=== PATIENT | male | born 1970 | race Caucasian/White ===

== ENCOUNTER → 2019-12-26 14:23 | Outpatient (BNVA) | payer OTHER, SELFPAY | PROVIDERS: Family Provider Family Medicine; PCP Family Medicine; Visit Provider Internal Medicine Rheumatology | DX: M05.79 Rheumatoid arthritis with rheumatoid factor of multiple sites without organ or systems involvement (principal); Z79.899 Other long term (current) drug therapy; Z11.59 Encounter for screening for other viral diseases; M19.90 Unspecified osteoarthritis, unspecified site; Z79.52 Long term (current) use of systemic steroids | CPT/HCPCS: 99214 ==

== ENCOUNTER 2019-12-27 09:47 | Outpatient (CLI) | payer OTHER, SELFPAY ==
--- NOTE | 2019-12-27 10:05 | XR_ITS ---
WS: [id number] RIGHT FOOT: 3 VIEW(S) TECHNIQUE: PA, oblique and lateral. HISTORY: arthritis COMPARISON: None available. No acute fracture or dislocation. Normal tarsal/metatarsal alignment. Mild narrowing of the first metatarsophalangeal joint. Very small calcaneal spur. Mild spurring along the volar surface of the talus. No soft tissue abnormality or bone destruction. XR/XR foot RT min 3V* [id number] IMPRESSION: Mild changes of osteoarthritis.
--- NOTE | 2019-12-27 10:05 | XR_ITS ---
WS: [id number] LEFT WRIST: 3 VIEW(S) TECHNIQUE: PA, oblique and lateral. HISTORY: arthritis COMPARISON: None available. No acute fracture or dislocation. No joint space abnormality. No soft tissue swelling. XR/XR wrist LT min 3V* [id number] IMPRESSION: Negative LEFT wrist.
--- NOTE | 2019-12-27 10:05 | XR_ITS ---
WS: [id number] LEFT ELBOW: 2 VIEW(S) TECHNIQUE: AP and lateral. HISTORY: arthritis COMPARISON: None available. No acute fractures or dislocation. No joint effusion. No soft tissue abnormality. XR/XR elbow LT 2V [id number] IMPRESSION: Normal LEFT elbow.
--- NOTE | 2019-12-27 10:05 | XR_ITS ---
WS: [id number] LEFT FOOT: 3 VIEW(S) TECHNIQUE: PA, oblique and lateral. HISTORY: rheumatoid arthritis with rheumatoid factor COMPARISON: None available. No acute fracture or dislocation. Mild narrowing of the first metatarsophalangeal joint. No erosions. Deformity of the proximal phalanx fifth toe is probably from an old healed fracture. No soft tissue abnormality or bone destruction. XR/XR foot LT min 3V* [id number] IMPRESSION: 1. Mild osteoarthritis at the first metatarsophalangeal joint. 2. No erosions.
--- NOTE | 2019-12-27 10:05 | XR_ITS ---
WS: [id number] RIGHT ELBOW: 2 VIEW(S) TECHNIQUE: AP and lateral. HISTORY: arthritis COMPARISON: None available. No acute fractures or dislocation. No joint effusion. Mild spurring at the radial head and a calcification along the medial joint space. XR/XR elbow RT 2V [id number] IMPRESSION: Mild osteoarthritis.
--- NOTE | 2019-12-27 10:05 | XR_ITS ---
WS: [id number] CHEST 2 VIEWS HISTORY: arthritis COMPARISON: 02/02/2018 Lungs: Hyperinflated lungs. Benign granuloma RIGHT lower lobe is stable. No pulmonary mass or nodule. No pleural effusion or pneumothorax. Cardiac size: Normal. Mediastinum/Aorta: Normal mediastinum. Bones: Thoracic spondylosis. Probably an old healed mid LEFT clavicle fracture. XR/XR chest 2V* [id number] IMPRESSION: 1. Mild chronic emphysema and stable benign RIGHT lower lobe granuloma. 2. No pneumonia.
--- NOTE | 2019-12-27 10:05 | XR_ITS ---
WS: [id number] RIGHT WRIST: 3 VIEW(S) TECHNIQUE: PA, oblique and lateral. HISTORY: arthritis COMPARISON: None available. No acute fracture or dislocation. No joint space abnormality. No soft tissue swelling. XR/XR wrist RT min 3V* [id number] IMPRESSION: Negative RIGHT wrist.
== END 2019-12-27 09:48 | disposition home or self-care (01) ==
PROVIDERS: Family Provider Family Medicine; PCP Family Medicine; Visit Provider Internal Medicine Rheumatology
DX: M19.072 Primary osteoarthritis, left ankle and foot (principal); M19.071 Primary osteoarthritis, right ankle and foot; M19.021 Primary osteoarthritis, right elbow; J43.9 Emphysema, unspecified
CPT/HCPCS: 71046; 73070; 73110; 73630

== ENCOUNTER → 2020-06-01 09:46 | Outpatient (BNVA) | payer OTHER, SELFPAY | PROVIDERS: Family Provider Family Medicine; PCP Family Medicine; Visit Provider Family Medicine | DX: Z13.6 Encounter for screening for cardiovascular disorders (principal); F51.01 Primary insomnia; Z12.11 Encounter for screening for malignant neoplasm of colon | CPT/HCPCS: 80061; 84153 ==

== ENCOUNTER 2020-06-19 07:23 | Day surgery (SDC) | payer OTHER, SELFPAY ==
[2020-06-15 13:54] VITALS: BMI 32.8
[2020-06-19 07:45] VITALS: BP 120/75; PULSE 102; RESP 18; TEMP 36.8; O2SAT 94
[2020-06-19] MEDS: sodium chloride 0.9% 1,000 ML 30 ML IV (07:56)
--- NOTE | 2020-06-19 08:53 | ANES.PREANE2 ---
Pre-Anesthetic Assessment Pre-Anesthetic Assessment: Height/Weight: Height 1.93 m Weight 122.47 kg Temp Pulse Resp BP Pulse Ox 98.2 F 102 H 18 120/75 94 06/19/20 07:45 06/19/20 07:45 06/19/20 07:45 06/19/20 07:45 06/19/20 07:45 Preop Diagnosis: screening Proposed Procedure: Operation Date: 06/19/20 09:00 Proposed Procedures p Colonoscopy with possible biopsy poss polypectomy(Not Applicable) - Noe Sales MD Was Beta Mary Ann taken within 24 hours: N/A Last intake: Intake Last Liquid Date 06/19/20 Last Liquid Time 00:00 Last Solid Date 06/18/20 Last Solid Time 08:00 Social: Social History: No alcohol and No tobacco (quit many yrs ago) Exam: Pre-Anes Outpt Exam: alert, oriented x 3, clear to auscultation bilaterally and regular rate & rhythm Airway: Submandibular: WNL Cervical ROM: WNL MP: 2 Dentition: Full History/ROS: No significant history except as noted Pulmonary: Pulmonary: Asthma (only as a child) CV/HEM: CV/HEM: None reported : : None reported Hepatic: Hepatic: None reported GI: GI: None reported Metabolic: Metabolic: None reported Musc/skel: Musc/skel: RA (last oral steroid this morning) Neuropsych: Neuropsych: None reported Anesthetic Plan: ASA status: 2 Anesthesia: Anesthesia Evaluation and MAC Risk of > 500 ml blood loss (7ml/kg in children): No Meds/Allergies Current Medications: Current Medications Generic Name Dose Route Start Last Admin Trade Name Freq PRN Reason Stop Dose Admin Sodium Chloride 1,000 mls @ 30 ml s/hr 06/19/20 07:45 06/19/20 07:56 Sodium Chloride 0.9% IV 30 mls/hr .Q24H JESSICA Administration PFSH Anesthesia PFSH: Medical History Rheumatoid arthritis with rheumatoid factor Surgical History History of appendectomy History of elbow surgery Family History Other Diabetes Denies family history of Rheumatoid arthritis Lupus CAD (coronary artery disease) Cancer Social History Smoking and tobacco status: former smoker Alcohol intake: former History of recent travel: No Data Anesthesia Cardiac Studies: No Data to Display
--- NOTE | 2020-06-19 08:55 | W.PM.OPSUD ---
Surgery/Procedure H&P Update DATE OF PROCEDURE: June 19, 2020 DATE H&P PERFORMED: 06/08/20 H&P UPDATE INFORMATION: I have reviewed H&P completed within last 30 days, I have examined patient prior to procedure and No changes to prior documentation PREOP DIAGNOSIS: screening PLANNED PROCEDURE: Operation Date: 06/19/20 09:00 Proposed Procedures p Colonoscopy with possible biopsy poss polypectomy(Not Applicable) - Noe Sales MD
[2020-06-19 09:24] VITALS: BP 108/79; PULSE 74; RESP 16; TEMP 36.2; O2SAT 93
[2020-06-19 09:33] VITALS: BP 119/82; PULSE 83; RESP 16; O2SAT 97
== END 2020-06-19 09:48 | disposition home or self-care (01) ==
PROVIDERS: PCP Family Medicine; Visit Provider Surgery
PROC: 0DJD8ZZ Inspection of Lower Intestinal Tract, Via Natural or Artificial Opening Endoscopic (ICD-10-PCS; CPT 45378; principal; 2020-06-19 09:00)
DX: Z12.11 Encounter for screening for malignant neoplasm of colon (principal); D12.3 Benign neoplasm of transverse colon; K57.30 Diverticulosis of large intestine without perforation or abscess without bleeding; K64.8 Other hemorrhoids; J45.909 Unspecified asthma, uncomplicated; M06.9 Rheumatoid arthritis, unspecified; Z87.891 Personal history of nicotine dependence; Z79.52 Long term (current) use of systemic steroids; G47.00 Insomnia, unspecified
CPT/HCPCS: 12345; 45385; 88305; J2704; J7030

== ENCOUNTER → 2020-07-05 12:54 | Outpatient (BNVA) | payer OTHER, SELFPAY | PROVIDERS: PCP Family Medicine; Visit Provider Internal Medicine Rheumatology | DX: M05.741 Rheumatoid arthritis with rheumatoid factor of right hand without organ or systems involvement (principal); M05.742 Rheumatoid arthritis with rheumatoid factor of left hand without organ or systems involvement; Z79.899 Other long term (current) drug therapy; Z79.52 Long term (current) use of systemic steroids | CPT/HCPCS: 99214 ==

== ENCOUNTER → 2020-10-23 09:27 | Outpatient (BNVA) | payer OTHER, SELFPAY | PROVIDERS: PCP Family Medicine; Visit Provider Internal Medicine Rheumatology | DX: M05.79 Rheumatoid arthritis with rheumatoid factor of multiple sites without organ or systems involvement (principal); Z79.899 Other long term (current) drug therapy; Z79.52 Long term (current) use of systemic steroids; R06.02 Shortness of breath; Z87.891 Personal history of nicotine dependence | CPT/HCPCS: 99214 ==

== ENCOUNTER → 2020-11-07 08:49 | Outpatient (BNVA) | payer OTHER, SELFPAY | PROVIDERS: PCP Family Medicine; Visit Provider Family Medicine | DX: R06.00 Dyspnea, unspecified (principal); J90 Pleural effusion, not elsewhere classified | CPT/HCPCS: 71046 ==

== ENCOUNTER 2020-12-24 10:22 | Outpatient (CLI) | payer OTHER, SELFPAY ==
[2020-12-24 10:34] VITALS: BMI 34.8
--- NOTE | 2020-12-24 10:35 | ECG_ITS ---
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 Interpretive Statements NAME OF STUDY: TREADMILL STRESS ECHOCARDIOGRAM INDICATION: Dyspnea PROCEDURE: At the baseline, the patient's blood pressure was 124/85 with a heart rate of 111. The baseline electrocardiogram showed sinus tachycardia with some nonspecific ST-T changes. Heart rate was 111 bpm. The patient exercised for 5 minutes and 24 seconds on a standard Mahendra protocol. Patient attained a maximum heart rate of 158 beats per minute(94% of the maximum predicted heart rate) with a blood pressure at the peak exercise of 201/47 mm Hg. The EKG at the peak exercise revealed no significant changes. Patient did not have any chest pain or any significant cardiac arrhythmias with the exercise During the recovery phase, there were no new changes. Blood pressure at the end of the recovery phase was 153/78 mm Hg with a heart rate of 110 per minute. Echocardiographic pictures were taken at the baseline, immediately following the peak exercise and during the recovery phase. CONCLUSION: 1. No significant EKG changes with the treadmill exercise 2. No exercise-induced chest pain or cardiac arrhythmia 3. Slightly impaired exercise tolerance, attained a maximum of 7.0 METs 4. Please see separate report for the echocardiographic response to exercise. Electronically Signed On 12-27-2020 9:57:50 [employer]SMITH by Carlos Barron M.D. [id number]
--- NOTE | 2020-12-24 10:37 | USCV_ITS ---
Deonte Adamson Age: 50 Gender: M : 1970 Exam Date: 12/24/2020 10:47 Ordering Phys: Winter Cox DO Technologist: Amada Martinez Exam Location: [facility] [place]ication: dyspnea Rhythm: Sinus Patient History: Dyspnea/SOB Cardiac Medications: Medications in past 24 hours: Contrast: Stress Results Protocol: Mahendra Total dose(mL): Exercise Duration (min:sec): 5:24 METS: 7 Resting HR: 111 Resting BP: 124 / 85 Peak HR: 158 Peak BP: 201 / 91 Max Predicted HR: 168 94 % Max Predicted HR Target HR: 143 Double Product: [id number] Stress Summary: The patient's target heart rate was achieved BP Response: Normal Reason for Termination: Maximal effort/unable to continue Cardiac Symptoms: Dyspnea ECG Analysis Resting ECG: Stress ECG: Arrhythmia: MEASUREMENTS (Male/Female) Normal Values FINDINGS Technically difficult study because of poor ultrasonic window. The baseline echocardiogram revealed normal LV size and ejection fraction. Segmental wall motion analysis revealed mild hypokinesia of the apical anteroseptal segment. Mitral valve morphology appears within normal limits. No pericardial effusion. With the peak exercise, there was some worsening of the apical anteroseptal hypokinesia. All the other segments appear augmenting well. During the recovery phase, the segmental wall motion returned back to the baseline CONCLUSIONS Borderline abnormal exercise stress echo may suggest some ischemia in the distribution of the distal left anterior descending artery . Because of the technical difficulty of the study, the reliability of this finding is compromised Dr Carlos Barron MD [facility] Edited by: CV Steel Turner (Electronically Signed) Final Date: 24 December 2020 19:44 Amended: 25 December 2020 06:36 C
[2020-12-24 11:13] VITALS: BP 153/78; PULSE 108
== END 2020-12-24 10:23 | disposition home or self-care (01) ==
LOC: CDL 10:23
PROVIDERS: PCP Family Medicine; Visit Provider Family Medicine
DX: R06.00 Dyspnea, unspecified (principal)
CPT/HCPCS: 93017; 93350

== ENCOUNTER 2021-01-24 06:54 | Outpatient (CLI) | payer OTHER, SELFPAY ==
--- NOTE | 2021-01-24 07:15 | USCV_ITS ---
Deonte Adamson Age: 50 Gender: M : 1970 Exam Date: 01/24/2021 07:25 Ordering Phys: Shabnam Reagan MD ([email or web address]) Technologist: Grant Greenfield [place]am [place] [facility] [place] [facility] [place] Indication: CHEST PAIN BP: / HR: 90 Rhythm: Sinus Technical Quality: Fair MEASUREMENTS (Male / Female) Normal Values 2D ECHO LV Diastolic Diameter PLAX 4.5 cm 4.2 - 5.9 / 3.9 - 5.3 cm LV Systolic Diameter PLAX 2.4 cm IVS Diastolic Thickness 1.5 cm 0.6 - 1.0 / 0.6 - 0.9 cm IVS Systolic Thickness 1.4 cm LVPW Diastolic Thickness 1.2 cm 0.6 - 1.0 / 0.6 - 0.9 cm LVPW Systolic Thickness 1.3 cm LVOT Diameter 2.2 cm LV Ejection Fraction 2D Teich 75.4 % LV Ejection Fraction MOD 2C 59.6 % LV Ejection Fraction 2C AL 61.5 % LA Diameter 3.1 cm LA Width 3.2 cm LA Height 4.1 cm RA Width 3.7 cm RA Height 4.1 cm Aorta at Sinotubular Diameter 4.1 cm M-MODE LV Diastolic Diameter MM 5.4 cm 4.2 - 5.9 / 3.9 - 5.3 cm LV Systolic Diameter MM 3.7 cm LV Ejection Fraction MM Teich 58.2 % IVS Diastolic Thickness MM 1.3 cm 0.6 - 1.0 / 0.6 - 0.9 cm IVS Systolic Thickness MM 2.1 cm LVPW Diastolic Thickness MM 1.3 cm 0.6 - 1.0 / 0.6 - 0.9 cm LVPW Systolic Thickness MM 2.0 cm RV Diastolic Diameter MM 1.3 cm Aortic Annulus Diameter 4.1 cm LA Ao Ratio MM 0.7 MV E Point Septal Separation 1.1 cm DOPPLER AV Peak Velocity 106.0 cm/s LVOT Peak Velocity 82.0 cm/s AV Area Cont Eq vti 3.1 cm squared AV Area Cont Eq pk 3.0 cm squared MV Area PHT 5.0 cm squared Mitral E to A Ratio 0.8 MV E' Velocity 35.0 cm/s Mitral E to MV E' Ratio 5.3 Mitral E to LV E' Lateral Ratio 5.8 Mitral E to LV E' Septal Ratio 5.0 TR Peak Velocity 230.0 cm/s TR Peak Gradient 21.2 mmHg PV Peak Velocity 108.0 cm/s FINDINGS Left Ventricle Normal left ventricular cavity size. Normal left ventricular systolic function. Left ventricular ejection fraction is estimated at 70 %. No regional wall motion abnormalities. Normal diastolic function. Right Ventricle Normal right ventricular size and systolic function. Right Atrium Normal right atrial size. Left Atrium Normal left atrial size. Mitral Valve Structurally normal mitral valve. No mitral valve stenosis. Trace mitral valve regurgitation. Aortic Valve Aortic valve not well visualized. No aortic valve stenosis. No aortic valve regurgitation. Tricuspid Valve Tricuspid valve not well visualized. Trace tricuspid valve regurgitation. Pulmonic Valve Pulmonic valve not well visualized. Pericardium No pericardial effusion. Aorta Normal sized aortic root. CONCLUSIONS 1. This is a technically difficult study. Optison was used per protocol. 2. Normal left ventricular cavity size and systolic function. Left ventricular ejection fraction is estimated at 70 %. No regional wall motion abnormalities. Normal diastolic function. 3. No significant valvular abnormality. 4. No pericardial effusion. Shabnam Reagan MD (Electronically Signed) Final Date: 29 January 2021 22:11 S
[2021-01-24] MEDS: perflutren protein-a microsphr 0.22 mg/mL SDV 3 mL IV (07:50)
== END 2021-01-24 06:55 | disposition home or self-care (01) ==
LOC: US 06:56
PROVIDERS: PCP Family Medicine; Visit Provider Internal Medicine Cardiovascular Disease
DX: I50.9 Heart failure, unspecified (principal); R07.9 Chest pain, unspecified
CPT/HCPCS: C8929; Q9956

== ENCOUNTER → 2021-03-07 08:44 | Outpatient (BNVA) | payer OTHER, SELFPAY | PROVIDERS: PCP Family Medicine; Visit Provider Internal Medicine Rheumatology | DX: M06.041 Rheumatoid arthritis without rheumatoid factor, right hand (principal); M06.042 Rheumatoid arthritis without rheumatoid factor, left hand; Z79.899 Other long term (current) drug therapy; R79.89 Other specified abnormal findings of blood chemistry; Z87.891 Personal history of nicotine dependence | CPT/HCPCS: 99214 ==

== ENCOUNTER → 2021-06-27 08:44 | Outpatient (BNVA) | payer OTHER, SELFPAY | PROVIDERS: PCP Family Medicine; Visit Provider Internal Medicine Rheumatology | DX: M06.041 Rheumatoid arthritis without rheumatoid factor, right hand (principal); M06.042 Rheumatoid arthritis without rheumatoid factor, left hand; Z79.899 Other long term (current) drug therapy; Z79.52 Long term (current) use of systemic steroids; R06.02 Shortness of breath; Z71.89 Other specified counseling; Z87.891 Personal history of nicotine dependence | CPT/HCPCS: 99214 ==

== ENCOUNTER 2022-06-04 09:00 | Outpatient (CLI) | payer OTHER, SELFPAY ==
--- NOTE | 2022-06-04 13:42 | PFTS_ITS ---
Date of Study:06/04/22 Date of Dictation: MECHANICS: Forced vital capacity (FVC) is reduced. Forced expiratory volume in one second (FEV1) is reduced. FEV1/FVC is reduced. FLOW VOLUME LOOP: Reduced flow at all lung volumes with significant scooping. LUNG VOLUMES: Not measured DIFFUSING CAPACITY FOR CARBON MONOXIDE: Not measured. INTERPRETATION: The postbronchodilator spirometry is consistent with severe airflow obstruction. There is a significant postbronchodilator response. A component of restrictive lung disease cannot be ruled out in the absence of lung volume measurement. Gas exchange (DLCO) is not measured. MTDD
== END 2022-06-04 09:01 | disposition home or self-care (01) ==
PROVIDERS: PCP Family Medicine; Visit Provider Family Medicine
DX: R06.02 Shortness of breath (principal)
CPT/HCPCS: 94060; J7614

== ENCOUNTER 2022-06-27 08:40 | Outpatient (CLI) | payer OTHER, SELFPAY ==
--- NOTE | 2022-06-27 09:00 | CT_ITS ---
WS: [id number] CT CHEST WITHOUT INTRAVENOUS CONTRAST HISTORY: M06.041 - Rheumatoid arthritis without rheumatoid factor,... TECHNIQUE: Contiguous 5 mm axial imaging performed on the thorax. Coronal and sagittal reformats are submitted. All CT scans at [facility] use at least one of these dose optimization techniques: automated exposure control; mA and/or kV adjustment per patient size (includes targeted exams where dose is matched to clinical indication); or iterative reconstruction. CONTRAST: None DLP: 3100.94 mGy.cm COMPARISON: None available. Large bilateral pleural effusions are causing significant compression upon the lungs. There is signif icant mass effect limiting pulmonary expansion. Most significant mass effect and compression on the l ower lobes bilaterally. Mild groundglass attenuation within the aerated upper lobes. 8mm nodule LEFT upper lobe. Mediastinum and everton: Inferior RIGHT paratracheal lymph node measures 11 mm. There are smaller additi onal lymph nodes. No significant adenopathy. Vessels: Minimal atherosclerosis aorta. Normal size pulmonary artery. Chest wall and lower neck: No soft tissue masses. Upper abdomen: Negative. Osseous structures: No destructive process. CT/CT chest wo con [id number] IMPRESSION: 1. Very large bilateral pleural effusion causing lung compression. 2. 8mm LEFT upper lobe nodule. Could be a pulmonary nodule associated with rh eumatoid arthritis. Follow-up chest CT in 6 months.
== END 2022-06-27 08:41 | disposition home or self-care (01) ==
LOC: RAD 08:41
PROVIDERS: PCP Family Medicine; Visit Provider Internal Medicine Rheumatology
DX: M06.041 Rheumatoid arthritis without rheumatoid factor, right hand (principal); M06.042 Rheumatoid arthritis without rheumatoid factor, left hand; R06.02 Shortness of breath; J90 Pleural effusion, not elsewhere classified; R91.1 Solitary pulmonary nodule
CPT/HCPCS: 71250

== ENCOUNTER 2022-07-01 06:50 | Emergency (ER) | payer OTHER, SELFPAY ==
[2022-07-01 06:54] VITALS: BP 151/85; PULSE 121; RESP 22; TEMP 36.6; O2SAT 92; BMI 29.8
--- NOTE | 2022-07-01 07:02 | XRR_ITS ---
PROCEDURE INFORMATION: Exam: XR Chest Exam date and time: 07/01/2022 7:25 AM Age: 51 years old Clinical indication: Cough and dyspnea; Additional info: Dyspnea/cough TECHNIQUE: Imaging protocol: Radiologic exam of the chest. Views: 1 view. COMPARISON: CT chest con [id number] 06/27/2022 9:18 AM FINDINGS: Lungs: Persistent increased lung markings and large bilateral pleural effusions with adjacent atelectasis, right greater than left. Pneumonia should be excluded clinically. No pneumothorax. Pleural spaces: See Lungs finding. Heart/Mediastinum: Stable cardiomediastinal silhouette. Bones/joints: Degenerative changes of the spine seen. XR/XR chest 1V portable [id number] IMPRESSION: Persistent mildly increased lung markings and large bilateral pleural effusions with adjacent atelectasis.
[2022-07-01 07:25] LABS: Basophils # 0.1 10^3/uL (0.0-0.1); Basophils % 0.8 %; Eosinophils # 0.4 10^3/uL (0.0-0.8); Eosinophils % 5.5 %; Hematocrit 43.1 % (42.0-52.0); Hemoglobin 13.7 g/dL (11.7-16.6); Lymphocytes # 1.6 10^3/uL (0.8-4.8); Lymphocytes % 19.8 %; Mean Corpuscular HGB Conc 31.8 g/dL (30.0-36.0); Mean Corpuscular Hemoglobin 29.9 pg (28.0-34.0); Mean Corpuscular Volume 94.1 fl (80-94); Monocytes # 0.7 10^3/uL (0.2-0.9); Monocytes % 8.5 %; Neutrophils # 5.21 10^3/uL (1.8-7.7); Nucleated Red Blood Cells % 0 %; Platelet Count 377 10^3/cmm (130-400); Red Blood Count 4.58 10^6/uL (4.1-5.3); Red Cell Distribution Width 14.8 % (12.1-15.1)
--- NOTE | 2022-07-01 07:27 | ED_ITS ---
HPI - SOB/Dyspnea General: Chief Complaint: Shortness of Breath/Dyspnea Stated Complaint: sob Time Seen by Provider: 07/01/22 07:01 Source: patient Mode of arrival: ambulatory Limitations: no limitations History of Present Illness: HPI Narrative: 51-year-old male presents emergency room complaining of shortness of breath. This been ongoing issue for couple of years for him. Over the last few weeks or months its been getting progressively worse. He has history of rheumatoid arthritis and he sees Dr. Chand. He had a CT done on 812 the results were made available to Dr. Chand evidently yesterday and he was called to come to the emergency room because of the large pleural effusion. He does report that he has been exercising regularly on a treadmill with only moderate shortness of breath he will walk about a half a mile. Other times when he does more anaerobic activity he notices worsening dyspnea. He denies any chest pain. MD elicited complaint: shortness of breath Onset (ago): year(s) (2) Timing: constant Severity: mild Exacerbating factors: lying flat and exertion Relieving factors: rest and upright position Associated symptoms: Deny abdominal pain, chest congestion, chest pain, cough, diaphoresis, dizziness, extremity pain, fever(s), hemoptysis, lightheadedness, myalgias, nausea, orthopnea, palpitations, paresthesias, polydipsia, polyuria, rash, sense of impending doom, syncope or vomiting Treatment prior to arrival: none Review of Systems Const: Reports: fatigue; Denies: fever(s), chills, malaise or diaphoresis ENMT: Denies: throat pain, ear or mastoid pain, nasal discharge or nasal congestion Card: Denies: chest pain, palpitations, lightheadedness, syncope or orthopnea Resp: Reports: dyspnea; Denies: productive cough, non-productive cough, hemoptysis or chest congestion GI: Denies: abdominal pain, nausea or vomiting : Denies: flank pain, dysuria, urinary frequency or urinary urgency Musc: Denies: extremity pain Skin/Breast: Denies: rash or pruritus Neuro: Denies: dizziness Endo: Denies: polyuria or polydipsia PFS ED PFSH: Medical History Current chronic use of systemic steroids History of colon polyps Rheumatoid arthritis with rheumatoid factor Seronegative rheumatoid arthritis of both hands Shortness of breath Surgical History History of appendectomy History of elbow surgery Status post colonoscopy with polypectomy (06/19/20) Family History Other Diabetes Denies family history of Rheumatoid arthritis Lupus CAD (coronary artery disease) Cancer Social History Smoking and tobacco status: never smoked Quit status (tobacco): has quit using tobacco Year quit tobacco: 2020 - 1PPD x 20 Years Second hand smoke exposure: No Smoking risk assessment/counseling performed?: No Alcohol intake: former Desire information about alcohol rehabilitation?: No Counseling given: No Desire information about substance/drug rehabilitation?: No Counseling given: No Lives independently: Yes Household members: none Marital status: Single Current occupational status: employed Current occupation: [employer] Current occupational exposures/hazards: No History of recent travel: No Current gender identity: Male Course Vital Signs: Vital signs: Vital Signs Temperature 97.9 F 07/01/22 06:54 Pulse Rate 102 H 07/01/22 08:27 Respiratory Rate 20 H 07/01/22 08:27 Blood Pressure 112/83 07/01/22 08:27 Pulse Oximetry 93 07/01/22 08:28 Oxygen Delivery Me thod 07/01/22 08:27 MDM - SOB/Dyspnea Medical Decision Making Previous CT and today's chest x-ray as well as labs and EKGs all reviewed. Kimberly ent is at this point of fusion for extended period of time dating back at least [address]. Ramirez reviewed the CT in the chart with him at this point its not emergent. Ultimately found out the patient has an appointment today with Dr. Tariq. We will go ahead and discharge him from the ER and have him follow-up with Dr. Tariq as scheduled. We did ambulate him and do home oxygen evaluation did not desaturate significantly with ambulation. Discussed with the patient that since this is chronic and may be loculated and difficult to drain and is very likely to recur and could be better for Dr. Tariq to manage this as opposed to having radiology do an ultrasound-guided thora centesis here in the emergency room. He agrees and we will discharge him we did confirm with Dr. Jones's office he has an appoint with him at 1245 today. Medical Records I reviewed the patient's medical records. Lab Data I reviewed the patient's lab results. : 07/01/22 07:20 07/01/22 07:20 Labs/Radiology: Radiology Impressions Chest X-Ray 07/01/22 07:02 IMPRESSION: Persistent mildly increased lung markings and large bilateral pleural effusions with adjacent atelectasis. Laboratory Results WBC 8.0 10^3/uL (4.0-10.0) 07/01/22 07:20 RBC 4.58 10^6/uL (4.1-5.3) 07/01/22 07:20 Hgb 13.7 g/dL (11.7-16.6) 07/01/22 07:20 Hct 43.1 % (42.0-52.0) 07/01/22 07:20 MCV 94.1 fl (80-94) H 07/01/22 07:20 MCH 29.9 pg (28.0-34.0) 07/01/22 07:20 MCHC 31.8 g/dL (30.0-36.0) 07/01/22 07:20 RDW 14.8 % (12.1-15.1) 07/01/22 07:20 Plt Count 377 10^3/cmm (130-400) 07/01/22 07:20 MPV 10.0 fL (7.4-10.4) 07/01/22 07:20 Neut % (Auto) 65.0 % 07/01/22 07:20 Lymph % (Auto) 19.8 % 07/01/22 07:20 [place] % (Auto) 8.5 % 07/01/22 07:20 Eos % (Auto) 5.5 % 07/01/22 07:20 Baso % (Auto) 0.8 % 07/01/22 07:20 Neut # (Auto) 5.21 10^3/uL (1.8-7.7) 07/01/22 07:20 Lymph # (Auto) 1.6 10^3/uL (0.8-4.8) 07/01/22 07:20 [place] # (Auto) 0.7 10^3/uL (0.2-0.9) 07/01/22 07:20 Eos # (Auto) 0.4 10^3/uL (0.0-0.8) 07/01/22 07:20 Baso # (Auto) 0.1 10^3/uL (0.0-0.1) 07/01/22 07:20 Nucleated RBC % (auto) 0 % 07/01/22 07:20 Nucleated RBCs # 0.0 /100WBC 07/01/22 07:20 PT 14.50 SECONDS (12.1-14.9) 07/01/22 07:20 INR 1.10 (0.8-1.2) 07/01/22 07:20 APTT 37.1 SECONDS (23.9-36.7) H 07/01/22 07:20 Sodium 137 mmol/L (136-145) 07/01/22 07:20 Potassium 3.6 mmol/L (3.5-5.1) 07/01/22 07:20 Chloride 97 mmol/L (98-107) L 07/01/22 07:20 Carbon Dioxide 29 mmol/L (22-29) 07/01/22 07:20 Anion Gap 14.6 (5-19) 07/01/22 07:20 BUN 20 mg/dL (6-20) 07/01/22 07:20 Creatinine 1.2 mg/dL (0.7-1.2) 07/01/22 07:20 GFR Calculation 63.3 mL/min (90-130) L 07/01/22 07:20 Glucose 132 mg/dL (65-115) H 07/01/22 07:20 Calculated Osmolality 288 mOsm/kg (285-295) 07/01/22 07:20 Calcium 9.1 mg/dL (8.5-10.5) 07/01/22 07:20 Total Bilirubin 0.4 mg/dL (0.15-1.2) 07/01/22 07:20 AST 13 U/L (0-40) 07/01/22 07:20 ALT 13 U/L (0-41) 07/01/22 07:20 Alkaline Phosphatase 128 U/L (40-130) 07/01/22 07:20 Total Protein 8.1 g/dL (6.6-8.7) 07/01/22 07:20 Albumin 3.8 g/dL (3.5-5.2) 07/01/22 07:20 Globulin 4.3 g/dL (1.3-4.6) 07/01/22 07:20 Discharge Plan Discharge Patient Disposition: Home Clinical Impression: Pleural effusion, Rheumatoid arthritis with rheumatoid factor, High risk med ication use Condition: Stable Prescriptions: No Action prednisone 5 mg tablet 5 mg PO DAILY PRN (Reason: Pain) potassium chloride 20 mEq tablet extended release 20 meq PO DAILY Qty: 90 1RF hydroxychloroquine 200 mg tablet 200 mg PO BID Qty: 60 3RF Hold Instructions: Doctor's Order albuterol sulfate [ProAir HFA] 90 mcg/actuation HFA aerosol inhaler 2 puff inhalation QID PRN (Reason: shortness of breath or wheezing) Qty: 8.5 0RF folic acid 1 mg tablet 1 mg PO DAILY Qty: 90 3RF methotrexate sodium 2.5 mg tablet 20 mg PO .Q7days Qty: 40 3RF Rx Instructions: Split dose Take 4 tabs by mouth in AM and 4 in PM on same day 1x a week pantoprazole 40 mg tablet,delayed release (DR/EC) See Rx Instructions .ROUTE .COMPLEX Qty: 30 3RF Dose Instruction: TAKE 1 TABLET BY MOUTH EVERY DAY Rx Instructions: TAKE 1 TABLET BY MOUTH EVERY DAY furosemide 40 mg tablet 40 mg PO DAILY Qty: 30 0RF Rx Instructions: MUST make follow-up for further refills Humira Pen 40 mg/0.8 mL pen injector kit See Rx Instructions .ROUTE .COMPLEX Qty: 2 1RF Dose Instruction: INJECT 40MG (0.8ML) SUBCUTANEOUSLY EVERY 14 DAYS Rx Instructions: INJECT 40MG (0.8ML) SUBCUTANEOUSLY EVERY 14 DAYS Discharge Orders: Discharge ED (Routine); Ordered 07/01/22 Ordered By: Antonio Rocha Referrals: Winter Cox DO [Primary Care Provider] - Patient Instructions: Opioid Safety Activity Restrictions/Additional Instructions: Keep appointment exercise plan today at 1245. Coding Level of Care Code ED Senior Pensions Administrator for Melissa De La Cruz
--- NOTE | 2022-07-01 07:32 | ECG_ITS ---
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 Measurements Intervals [place] Rate: 109 P: 23 CT: 106 QRS: 74 QRSD: 105 T: 53 QT: 332 QTc: 448 Interpretive Statements SINUS TACHYCARDIA WITH SHORT CT INTERVAL No previous ECG available for comparison Electronically Signed On 07-01-2022 18:02:41 CDT by Shabnam Reagan M.D. [email or web address]
[2022-07-01 07:46] LABS: Alanine Aminotransferase 13 U/L (0-41); Albumin Level 3.8 g/dL (3.5-5.2); Alkaline Phosphatase 128 U/L (40-130); Anion Gap 14.6 (5-19); Aspartate Amino Transferase 13 U/L (0-40); Blood Urea Nitrogen 20 mg/dL (6-20); Calcium 9.1 mg/dL (8.5-10.5); Carbon Dioxide 29 mmol/L (22-29); Chloride 97 mmol/L (98-107); Globulin 4.3 g/dL (1.3-4.6); Glomerular Filtration Rate 63.3 mL/min (90-130); Glucose 132 mg/dL (65-115); Osmolality Calculated 288 mOsm/kg (285-295); Potassium 3.6 mmol/L (3.5-5.1); Sodium 137 mmol/L (136-145); Total Bilirubin 0.4 mg/dL (0.15-1.2); Total Protein 8.1 g/dL (6.6-8.7)
[2022-07-01 07:53] LABS: Partial Thromboplastin Time 37.1 SECONDS (23.9-36.7)
[2022-07-01 08:27] VITALS: BP 112/83; PULSE 102; RESP 20; O2SAT 92
[2022-07-01 08:28] VITALS: O2SAT 91; O2SAT 93
== END 2022-07-01 08:38 | disposition home or self-care (01) ==
PROVIDERS: Emergency Provider Family Medicine; PCP Family Medicine
DX: J90 Pleural effusion, not elsewhere classified (principal); M05.9 Rheumatoid arthritis with rheumatoid factor, unspecified; Z79.52 Long term (current) use of systemic steroids; Z87.891 Personal history of nicotine dependence
CPT/HCPCS: 71045; 80053; 85025; 85610; 85730; 93005; 99285

== ENCOUNTER 2022-07-01 11:05 | Day surgery (SDC) | payer OTHER, SELFPAY ==
[2022-07-01 11:33] VITALS: BP 116/78; PULSE 107; RESP 20; TEMP 36.4; O2SAT 93
[2022-07-01 11:35] VITALS: BMI 29.8
--- NOTE | 2022-07-01 12:27 | XRR_ITS ---
PROCEDURE INFORMATION: Exam: XR Chest Exam date and time: 07/01/2022 12:41 PM Age: 51 years old Clinical indication: Device placement; Other: Post thoracentesis TECHNIQUE: Imaging protocol: Radiologic exam of the chest. Views: 1 view. COMPARISON: CR XR chest 1V portable [id number] 07/01/2022 7:25 AM FINDINGS: Lungs: See Pleural spaces finding. Pleural spaces: Interval improvement of ndcr-al-rfemvzte right pleural effusion after thoracentesis. Unchanged moderate left-sided pleural effusion. Bilateral compressive atelectasis noted. Pneumonia should be excluded clinically. No pneumothorax. Heart/Mediastinum: Stable cardiomediastinal silhouette. Bones/joints: Unremarkable. XR/XR chest 1V portable [id number] IMPRESSION: 1. Interval improvement of igyc-iw-tcujcnzz right pleural effusion with adjacent atelectasis, after thoracentesis. No pneumothorax. 2. Unchanged moderate left pleural effusion with adjacent atelectasis. Pneumonia should be excluded clinically.
[2022-07-01 12:41] VITALS: BP 117/78; PULSE 105; RESP 18; O2SAT 92
[2022-07-01 12:55] LABS: Body Fluid Polynuclear #Cells 0.039; Body Fluid WBC 229 /uL
[2022-07-01 12:56] LABS: Apprearance, Body Fluid CLOUDY; Color, Body Fluid YELLOW
--- NOTE | 2022-07-01 13:20 | P.PCN_ITS ---
Procedure/Consent Time out: Time Out Performed: Yes Consent: Consent for Procedure: Consent obtained from patient Procedure Narrative: Name of the procedure: Right-sided thoracentesis under ultrasound guidance. Indication: Persistent pleural effusion Anesthetics: Local anesthesia with 1% lidocaine, 10 mL. IV pain medication: None. Description of the procedure: The procedure was explained to the patient in detail including the risks and a consent was obtained. The right hemithorax was scanned with ultrasound to find a safe fluid pocket. Large quantity of fluid was noted. There was no complexity. Following identification of the fluid pocket the site was marked. The site was cleaned using sterile technique. Lidocaine 1% was injected into the skin and the subcutaneous tissue. Subsequently, the periosteum in the parietal pleural was also anesthetized using lidocaine. The pleural space was entered in the posterior axillary line in the right seventh intercostal space. Cloudy, straw- colored fluid was noted. There was swirling of sediment in the pleural fluid. A total of 2 L of fluid was removed. Sample: The pleural fluid was sent for cell count and differential, pH, protein, LDH, triglyceride, Gram stain and culture, fungal stain and culture, AFB stain and culture and cytology. Postprocedure chest x-ray did not show any pneumothorax. Acute Procedures Epistaxis Control: Time out performed: Yes
[2022-07-01 13:28] LABS: Cyto Order Verification Order Verified
[2022-07-01 13:48] LABS: Creatinine Body Fluid 1.08 (0.7-1.2); LDH Pleural Fluid 246 U/L; Total Protein Pleural Fluid 4.4 g/dL; Triglycerides, Pleural Fluid 31 mg/dL
[2022-07-03 12:23] LABS: Lymphoma Profile (BBPL) See Report
== END 2022-07-01 12:51 | disposition home or self-care (01) ==
PROVIDERS: PCP Family Medicine; Visit Provider Internal Medicine Critical Care Medicine
PROC: (CPT 32554; principal; 2022-07-01 12:30)
DX: J90 Pleural effusion, not elsewhere classified (principal)
CPT/HCPCS: 32554; 71045; 80503; 82570; 82945; 83615; 83986; 84157; 84478; 87015; 87070; 87075; 87116; 87205; 87206; 87801; 88108; 88184; 88185; 88305; 89050

== ENCOUNTER 2022-10-29 09:17 | Outpatient (CLI) | payer OTHER, SELFPAY ==
--- NOTE | 2022-10-29 09:32 | XRR_ITS ---
PROCEDURE INFORMATION: Exam: XR Chest Exam date and time: 10/29/2022 9:41 AM Age: 52 years old Clinical indication: Cough and shortness of breath; Patient HX: SOB, cough, HX pleural effusion jun 2022; Additional info: M05.9 - rheumatoid arthritis with rheumatoid factor, unsp. . . TECHNIQUE: Imaging protocol: Radiologic exam of the chest. Views: 2 views. PA and Lateral COMPARISON: CR XR chest 1V portable [id number] 07/01/2022 12:41 PM FINDINGS: Lungs: There are unchanged lung volumes. Unchanged appearance of the medium-sized loculated bilateral pleural effusions seen is seen. Unchanged associated mild bilateral basilar atelectasis. Unchanged right mid to lower lung zone 0.5 x 0.7 cm calcified granuloma is seen. Age-related interstitial prominence is seen in the lungs. Pleural spaces: No pneumothorax. Heart/Mediastinum: The heart size is normal. The mediastinal contour is normal. The trachea is in the midline. Bones/joints: No acute abnormalities. XR/XR chest 2V* [id number] IMPRESSION: No significant change in correlation with the prior chest radiograph dated July 01, 2022. Unchanged loculated bilateral pleural effusions, as noted above.
== END 2022-10-29 09:18 | disposition home or self-care (01) ==
LOC: RAD 09:19
PROVIDERS: PCP Family Medicine; Visit Provider Internal Medicine Rheumatology
DX: M05.9 Rheumatoid arthritis with rheumatoid factor, unspecified (principal); R06.00 Dyspnea, unspecified; J90 Pleural effusion, not elsewhere classified
CPT/HCPCS: 71046

== ENCOUNTER 2022-12-22 08:11 | Outpatient (CLI) | payer OTHER, SELFPAY ==
--- NOTE | 2022-12-22 08:30 | CT_ITS ---
WS: [id number] CT CHEST WITHOUT INTRAVENOUS CONTRAST HISTORY: 6 month f/u lung nodule seen Jun 2022 TECHNIQUE: Contiguous 5 mm axial imaging performed on the thorax. Coronal and sagittal reformats are submitted. All CT scans at [facility] use at least one of these dose optimization techniques: automated exposure control; mA and/or kV adjustment per patient size (includes targeted exams where dose is matched to clinical indication); or iterative reconstruction. CONTRAST: None DLP: 652.81 mGy.cm COMPARISON: 06/27/2022 Lungs and central airway: Bilateral pleural effusions are reidentified. LEFT pleural effusion has sli ghtly increased in size and this was displacing the LEFT upper lobe peripheral nodule. Nodule is stil l identified measuring 7 to 8 mm without change. There is an additional 3 mm noncalcified nodule in t he LEFT upper lobe which is stable also. There are a few additional groundglass attenuation opacifica tions in the upper lung reyes. May be related to edema or pneumonitis. Pleura: Large RIGHT pleural effusion has decreased in size since the prior study. Heart and pericardium: Normal size heart with no pericardial effusion. Mediastinum and everton: No adenopathy. Vessels: Mild atherosclerosis aorta. Normal size pulmonary artery. Chest wall and lower neck: No soft tissue masses. Upper abdomen: Hepatic and splenic granulomata. Small hiatal hernia. Osseous structures: No destructive process. CT/CT chest wo con [id number] IMPRESSION: 1. LEFT upper lobe peripheral pulmonary nodule reidentified unchanged in size measuring 7-8 mm. Nodule is displaced centrally by an enlarging LEFT pleural ef fusion. 2. Large bilateral pleural effusions. The LEFT is slightly increased in size w hile the RIGHT has decreased. 3. Diffuse scattered groundglass attenuation opacifications in the upper lung reyes. May be related to edema or pneumonitis.
== END 2022-12-22 08:12 | disposition home or self-care (01) ==
PROVIDERS: PCP Family Medicine; Visit Provider Internal Medicine Pulmonary Disease
DX: R91.1 Solitary pulmonary nodule (principal)
CPT/HCPCS: 71250

== ENCOUNTER 2022-12-29 09:47 | Outpatient (CLI) | payer OTHER, SELFPAY ==
[2022-12-29 10:59] LABS: Basophils # 0.1 10^3/uL (0.0-0.1); Basophils % 0.6 %; Eosinophils # 0.1 10^3/uL (0.0-0.8); Eosinophils % 1.6 %; Hematocrit 44.4 % (42.0-52.0); Hemoglobin 14.3 g/dL (11.7-16.6); Lymphocytes # 1.1 10^3/uL (0.8-4.8); Lymphocytes % 13.1 %; Mean Corpuscular HGB Conc 32.2 g/dL (30.0-36.0); Mean Corpuscular Hemoglobin 30.6 pg (28.0-34.0); Mean Corpuscular Volume 94.9 fl (80-94); Mean Platelet Volume 10.2 fL (7.4-10.4); Neutrophils % 71.4 %; Nucleated Red Blood Cells % 0 %; Platelet Count 343 10^3/cmm (130-400); Red Blood Count 4.68 10^6/uL (4.1-5.3); Red Cell Distribution Width 15.5 % (12.1-15.1)
[2022-12-29 11:12] LABS: INR 1.11 (0.83-1.21); Prothrombin Time (Patient) 14.6 Seconds (12.0-15.1)
[2022-12-29 11:18] LABS: Anion Gap 15.3 (5-19); Blood Urea Nitrogen 25 mg/dL (6-20); Calcium 9.3 mg/dL (8.5-10.5); Carbon Dioxide 29 mmol/L (22-29); Chloride 96 mmol/L (98-107); Glomerular Filtration Rate 69.8 mL/min (90-130); Glucose 143 mg/dL (65-115); Osmolality Calculated 289 mOsm/kg (285-295); Potassium 4.3 mmol/L (3.5-5.1); Sodium 136 mmol/L (136-145)
== END 2022-12-29 09:48 | disposition home or self-care (01) ==
LOC: LAB 09:50
PROVIDERS: PCP Family Medicine; Visit Provider Internal Medicine Cardiovascular Disease
DX: I50.31 Acute diastolic (congestive) heart failure (principal); R06.00 Dyspnea, unspecified
CPT/HCPCS: 36415; 80048; 85025; 85610

== ENCOUNTER 2022-12-30 07:43 | Day surgery (SDC) | payer OTHER, SELFPAY ==
[2022-12-26 09:15] VITALS: BMI 28.5
[2022-12-30 07:57] VITALS: BP 119/79; PULSE 111; RESP 18; TEMP 36.3; O2SAT 92
--- NOTE | 2022-12-30 08:51 | XRR_ITS ---
PROCEDURE INFORMATION: Exam: XR Chest Exam date and time: 12/30/2022 9:34 AM Age: 52 years old Clinical indication: Device placement; Other: Post thoracentesis; Additional info: Post thoracentesis, gi lab pre/post 3-4 TECHNIQUE: Imaging protocol: Radiologic exam of the chest. Views: 1 view. COMPARISON: CT chest con [id number] 12/22/2022 8:18 AM FINDINGS: Lungs: No focal consolidation. Pleural spaces: No pneumothorax. Large bilateral loculated pleural effusions were seen on 12/22/2022. Pleural effusion is decreased on the left. Stable on the right. Heart/Mediastinum: Cardiomediastinal contours are unremarkable. Bones/joints: Bones are unremarkable. XR/XR chest 1V portable [id number] IMPRESSION: 1. Decreased left pleural effusion. No pneumothorax. 2. Stable large loculated right pleural effusion.
--- NOTE | 2022-12-30 09:02 | PC.NURSE ---
Thoracentesis completed on left lung. Pt tolerated well with O2 sats around 93-96%. 1,720ml of dark brown pleural fluid removed. Fluid sent to lab and Leila from path came and picked up the full evacuated container. Portable chest xray ordered.
--- NOTE | 2022-12-30 09:05 | P.PCN_ITS ---
Outpatient Procedures Thoracentesis Consent signed and on chart: Yes Time Out Performed: Yes Procedure: therapeutic thoracentesis and diagnostic thoracentesis Location: Left Local anesthetic used: lidocaine 1% Bedside ultrasound used: yes, pleural effusion confirmed and location marked and yes, real-time guidance Preparation: 10 blade used to make erlinda in skin Amount of fluid obtained (mL): 1,720 Fluid: other (coffee colored - frothy) Post Procedure Exam: awake, alert, normal BP, normal HR and normal SpO2 Post-procedure chest x-ray ordered: Yes Estimated blood loss (mL): 5 Patient Tolerated Procedure: well and no complications Procedure Note: Pulmonary & Critical Care Medicine Procedure - Ultrasound guided Thoracentesis Procedure:CPT 22580: Pleural space aspiration with imaging guidance utilizing thoracentesis, needle, or catheter. Indication: left Pleural effusion Surface Supervisor(s): Freddy Ramirez MD Consent: Signed and placed in chart Anesthesia: 10 cc 1% lidocaine without epinephrine Description: {right/left:}, Chest X ray reviewed and Pleural effusion was localized using ultrasound guidance and the appropriate site was marked accordingly. A time out was performed. My hands were washed immediately prior to the procedure. I wore a surgical cap, mask with protective eyewear, sterile gown and sterile gloves throughout the procedure. The patient was placed in appropriate position, area of interest was sterilized with chlorhexidine skin prep and draped in a sterile manner. 1% lidocaine was used to anesthesize the skin, subcutaneous tissue, superior aspect of the rib periosteum and parietal pleura. A finder needle was then introduced over the superior aspect of the rib to locate the pleural fluid;5 cc dark coffee colored fluid was aspirated. A 10- blade scalpel was used to erlinda the skin at the insertion site. The Okid-r-Rkwko sis needle was then introduced through the skin incision into the pleural space using negative aspiration pressure and the red colormetric indicator to confirm appropriate positioning of the needle. The thoracentesis catheter was then threaded without difficulty.1720 CC dark coffee colored fluid was removed without difficulty. The catheter was then removed. No immediate complications were noted during the procedure. The fluid will be sent for studies. Estimated blood loss is 5 - 10 CC. Ultrasound guidance used: yes. Image saved to ultrasound machine yes EBL: 5 cc Complications: None PCXR: A post-procedure chest x-ray did not show pneumothorax.
[2022-12-30 10:25] LABS: Body Fluid Polynuclear #Cells 0.192; Body Fluid WBC 310 /uL; Monocytes # Body Fluid 0.118
[2022-12-30 10:26] LABS: Apprearance, Body Fluid TURBID; Color, Body Fluid OTHER; Cyto Order Verification No Order
[2022-12-30 11:26] LABS: Albumin Body Fluid 2.6 g/dL; Creatinine Body Fluid 0.6 (0.7-1.2); Total Protein Pleural Fluid 4.7 g/dL; Triglycerides, Pleural Fluid 61 mg/dL
[2022-12-30 11:27] LABS: LDH Pleural Fluid 1347 U/L
== END 2022-12-30 09:40 | disposition home or self-care (01) ==
PROVIDERS: PCP Family Medicine; Visit Provider Internal Medicine Pulmonary Disease
PROC: (CPT 32554; principal; 2022-12-30 08:30)
DX: J90 Pleural effusion, not elsewhere classified (principal)
CPT/HCPCS: 32554; 71045; 80503; 82042; 82150; 82570; 82945; 83615; 83986; 84157; 84478; 85014; 87015; 87070; 87075; 87116; 87205; 87206; 87801; 88112; 88305; 89050

== ENCOUNTER 2023-01-01 05:58 | Outpatient (CLI) | payer OTHER, SELFPAY ==
[2023-01-01] VITALS (15 sets, daily range): BP systolic 108–122; BP diastolic 69–86; PULSE 69–99; RESP 16–24; TEMP 37; O2SAT 92–96; BMI 27.7
--- NOTE | 2023-01-01 06:00 | XACV_ITS ---
Ht: 193 cm Wt: 103 kg BSA: 2.37 m2 Gender: Male : 1970 Any Known Allergies: Other Exam Priority: Routine Procedure(s): Procedure Description: Diagnostic procedure Procedure Description: Left Heart Catheterization Procedure Description: Left ventriculography Procedure Description: Coronary Angiography Diagnostic Cath Status: Elective Diagnostic Findings * INDICATION: 52-year-old man with past medical history of recurrent pleural effusion has been having significant shortness of breath and dyspnea on exertion. He had a stress test that was abnormal showing ischemia in LAD territory. Plan for left heart cath with possible percutaneous coronary intervention. * No significant disease noted in the Left Main, Left Anterior Descending, Right, or Circumflex coronary arteries. * Coronary angiography shows right dominance. Conclusions 1. No significant disease noted in the Left Main, Left Anterior Descending, Right, or Circumflex coronary arteries. 2. Normal left ventricular systolic function. Ejection fraction of 55%. Recommendations * Aggressive risk factor modification. * Outpatient cardiology follow up in 4 weeks. Interventional RX Recommendation: medical therapy and/or counseling Diagnostic RX Recommendation: medical therapy and/or counseling Anticoagulation: Heparin Ventriculography Ejection Fraction: 55.0 % Pressures Phase:Rest AO : 86 / 77 ( 82 ) @ 7:59:00 AM 106 / 69 ( 82 ) @ 8:03:00 AM 108 / 69 ( 83 ) @ 8:03:00 AM LV : 126 / -18 / 9 @ 8:02:00 AM 126 / -12 / 11 @ 8:03:00 AM 130 / -11 / 12 @ 8:03:00 AM Valves Phase:DefaultPhase AV : 23.0 @ 8:12:41 AM 23.0 @ 8:12:41 AM AV Mean Gradient: 14.0 @ 8:12:41 AM 14.0 @ 8:12:41 AM Clinical Evaluation EBL: 5mL-10mL Procedural Details Pre-Procedure Time Out. Identified patient by full name and date of as verbalized by the patient/guarantor. Does the consent match the physician's order: Yes. Accurate & Complete Informed Consent: Yes. Inpatient/Outpatient History & Physical on Chart: Yes. If H&P is completed, is and addenduem needed: No. Visualize and Verify Site with Patient/Guarantor: N/A. Relevant Radiology Images available: Yes. Pre-op teaching completed and patient verbalized understanding. Procedure started. [facility] Clinical Fraility Score: 3: Managing Well. Truck Despatcher Indications: Other: [place]/Abnormal stress test. Chest Pain Symptom Assessment: Atypical Angina. Cardiovascular Instability: No. Correct patient, site and procedure confirmed by cath team. PERRLA. Strong, equal hand manufacturing mechanic bilaterally. Lungs clear x 5 lobes. IV Site on Arrival: 18 gauge in the right anticubital. IV Fluids: 0.9% NaCl at KVO. 0 mL infused prior to cath lab radiological technologist. Pre Procedural Pulses: bilateral dorsalis pedis was 2+. Pre Procedural Pulses: bilateral posterior tibial was 2+. Pre Procedural Pulses: bilateral radial was 3+. Oxygen started at 2liters/min via nasal canula. right groin was prepped with chloroprep then draped in the usual sterile fashion. right radial was prepped with chloroprep then draped in the usual sterile fashion. Physician notified. Patient's family unavailable. Equipment: 6F - Radial. Cardiac Cath Pack. ACIST Manifold Kit Model BT 2000. Heparinized Saline (2 units/mL), 1000 mL bag. Physician arrived. Baseline sample Acquired. HR: 80 BPM. Physician scrubbed in. Immediate Pre-Procedure Time Out. Correct Patient: Yes; Correct Procedure: Yes; Correct Site: Yes; Correct Patient Position: Yes; Correct Supplies: Yes; Dried Flammable Prep: Yes; Blood Products Available: N/A;. Lidocaine 1% infiltrated to the right radial. Arterial access obtained. A 5 belizean JR4 125cm catheter in over the exchange J wire. Multiple views taken of right coronary artery. Catheter removed over the exchange J wire. Multiple views taken of left coronary artery. Catheter removed over the exchange J wire. A 6 belizean 125cm Straight Pig catheter in over the exchange J wire. EDP Sample taken: LV 126/-19,9; HR: 82 BPM; SpO2: 95%. LV gram performed in WISE @ 10 mL/second for a total of 30 mL. EDP Sample taken: LV 126/-13,11; HR: 82 BPM; SpO2: 97%. Pullback taken: LV 130/-12,12; AO 106/69(82); Mean: 14mmHg, Peak to Peak: 23mmHg, SEP: 18sec/min; HR: 81 BPM; SpO2: 98%. Catheter removed over the exchange J wire. Dr Orozco scrubbed out. A TR Band was unsuccessful obtaining hemostatsis at the Right Radial artery insertion site. TR band placed. Hemostasis obtained. Post Procedure: Pulses reassessed and unchanged. PERRLA. Strong, equal hand manufacturing mechanic bilaterally. No VTE prophylaxis required. Medication's Wasted: Lidocaine 1% = 3 mL. Medication's Wasted: Nitro = 49.8 mg. Medication's Wasted: Heparin = 1000 Units. Medication's Wasted: Other = Fentanyl 75 mcg. Total IV fluids: 54 mL. 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 Complications: none. Estimated blood loss: 5mL-10mL. Responsiveness - Normal response to verbal stimuli; alert and oriented, PERRLA. Airway - Unaffected, no intervention required; spontaneous ventilation. Circulation: W/N/L, pulses unchanged. Nausea/Vomiting: No. Procedure completed. Patient transferred by wheelchair to CPRU. Access Site Site: Right Radial artery Sheath Size: 5 Fr Hemostasis Method: TR Band Hemostasis Success: Unsuccessful Procedure Medications Start: 7:42 AM Stop: 7:42 AM Medication: Versed Amount: 1 mg Route: I.V. Start: 7:43 AM Stop: 7:43 AM Medication: Fentanyl Amount: 25 mcg Route: I.V. Start: 7:46 AM Stop: 7:46 AM Medication: Versed Amount: 1 mg Route: I.V. Start: 7:55 AM Stop: 7:55 AM Medication: 0.9% Saline Amount: ml Route: I.V. bolus Start: 7:56 AM Stop: 7:56 AM Medication: Heparin Amount: 5000 units Route: I.V. I, the attending physician, have reviewed and verified all procedure medications. Yes, all medications given per verbal order History/Risk Factors Hypertension: No Dyslipidemia: No Peripheral Arterial Disease (PAD): No Myocardial Infarction (TX): No Obesity: No Renal Disease: No Tobacco Use: Former Prior Interventions PCI: No CABG: No Valve Surgery: No Report Signatures Finalized by Oswald Orozco MD on 01/10/2023 01:58 PM
[2023-01-01] MEDS: aspirin 325 mg Tablet PO (06:10)
[2023-01-01] MEDS: diphenhydrAMINE 50 mg Capsule PO (06:10)
--- NOTE | 2023-01-01 07:31 | W.PM.OPSFHP ---
Same Day Surgery H&P Indication for Procedure/HPI DATE OF PROCEDURE: January 01, 2023 CHIEF COMPLAINT/INDICATIONFOR SURGICAL PROCEDURE: Shortness of breath/ abnormal stress test PREOP DIAGNOSIS: Shortness of breath/ abnormal stress test PLANNED PROCEDURE: Operation Date: 01/01/23 07:00 Proposed Procedures p [facility] w/wo 35940 <r07.9,R06.00,I50.31,Z82.49(Left) - Oswald Orozco M.D Possible percutaneous coronary intervention 52-year-old man with past medical history of recurrent pleural effusion has been having significant shortness of breath and dyspnea on exertion. He had a stress test that was abnormal showing ischemia in LAD territory. Plan for left heart cath with possible percutaneous coronary intervention. ROS CONSTITUTIONAL: No fever chills weight loss or gain or night sweats. [] HEENT: Normocephalic, atraumatic.[] RESPIRATORY: Shortness of breath and dyspnea on exertion CARDIOVASCULAR: Shortness of breath. GI: no nausea vomiting diarrhea. [] PARKING ENFORCEMENT OFFICER: No numbness, tingling, weakness or loss of function in any part of the body. [] MUSCULOSKELETAL: No knee or joint pain or rashes. [] Medications/Allergies* Home Medications Medication Instructions Recorded Confirmed Type pantoprazole 40 mg tablet,delayed 40 mg PO DAILY 12/26/22 01/01/23 History release aspirin 81 mg tablet 81 mg PO DAILY 12/31/22 01/01/23 History Allergies/Adverse Reactions Allergy/AdvReac Type Severity Reaction Status Date / Time leflunomide AdvReac Mild rash hands Verified 01/01/23 06:44 sulfasalazine AdvReac Mild rash Verified 01/01/23 06:44 Current Medications: Generic Name Dose Route Start Last Admin Trade Name Freq PRN Reason Stop Dose Admin Sodium Chloride 1,000 mls @ 50 mls/hr 01/01/23 06:00 01/01/23 06:43 Sodium Chloride 0.9% IV 01/02/23 01:59 Not Given .Q20H ONE Pertinent History/Comorbid Conditions* Medical History (Updated 11/06/22 @ 22:40 by Freddy Ramirez MD) Current chronic use of systemic steroids History of colon polyps Pleural effusion Hx, used to see Dr. Tariq Rheumatoid arthritis with rheumatoid factor Seronegative rheumatoid arthritis of both hands Shortness of breath Surgical History (Updated 06/19/20 @ 09:26 by Noe Sales MD) History of appendectomy History of elbow surgery Status post colonoscopy with polypectomy (06/19/20) Family History (Updated 03/19/20 @ 09:04 by Mireille Ferrera LPN) Diabetes Denies family history of Rheumatoid arthritis Lupus CAD (coronary artery disease) Cancer Social History Smoking and tobacco status: former smoker Quit status (tobacco): has quit using tobacco Year quit tobacco: 2019PD x 20 Years Second hand smoke exposure: No Smoking risk assessment/counseling performed?: No Alcohol intake: former Desire information about alcohol rehabilitation?: No Counseling given: No Desire information about substance/drug rehabilitation?: No Counseling given: No Lives independently: Yes Household members: none Marital status: Single Current occupational status: employed Current occupation: [employer] Current occupational exposures/hazards: No History of recent travel: No Current gender identity: Male Pertinent Exam Findings alert, oriented x 3, clear to auscultation bilaterally and regular rate & rhythm Conscious Sedation Assessment PATIENT ASSESSED PRIOR TO SEDATION, WITH NO CHANGE NOTED: Yes AIRWAY EVAL/ANESTHESIA PLAN: normal airway, ASA III, Local Anesthesia, Risks, benefits & alternatives of sedation and/or procedure discussed and Patient agrees to continue as planned ADDITIONAL INFORMATION: Moderate sedation Recommendations Surgery/Procedure today (Left heart cath with possible percutaneous coronary intervention) Coding Level of Care Code Acute Code for Melissa De La Cruz
--- NOTE | 2023-01-01 08:53 | SUR.PHASEII ---
POST OP IV FLUIDS SET TO 100 CC/HR ORDERED.
--- NOTE | 2023-01-01 10:22 | SUR.PHASEII ---
Band Removal TR band removed per protocol. No issues or hematoma noted. Verbal post cath instructions given. Verbalized understanding.
== END 2023-01-01 11:30 | disposition home or self-care (01) ==
PROVIDERS: PCP Family Medicine; Visit Provider Internal Medicine
DX: R94.39 Abnormal result of other cardiovascular function study (principal); I50.31 Acute diastolic (congestive) heart failure; Z86.711 Personal history of pulmonary embolism; Z79.82 Long term (current) use of aspirin; Z87.891 Personal history of nicotine dependence; M06.9 Rheumatoid arthritis, unspecified
CPT/HCPCS: 36415; 93458; 96361; 96365; 99152; 99153; C1769; C1887; C1894; J1644; J2250; J3010; J3490; J7030; Q0163; Q9967

== ENCOUNTER 2023-01-06 09:57 | Day surgery (SDC) | payer OTHER, SELFPAY ==
[2023-01-01 09:43] VITALS: BMI 27.3
[2023-01-06 10:54] VITALS: BP 134/84; PULSE 97; RESP 16; TEMP 36.4; O2SAT 94
--- NOTE | 2023-01-06 11:29 | XR_ITS ---
WS: [id number] Exam: XR chest 1V portable [id number] Date/Time of Exam: 01/06/2023 11:45 AM Reason For Exam: post thora Comparison 12/30/2022. Significant reduction in right-sided pleural effusion since the prior study secondary to thoracentesi s. The right lung remains fully expanded. Minimal effusion remains on the right. There is increasing left-sided pleural effusion since the last exam. Mild cardiac enlargement. The mediastinum is normal in contour for technique. S-shaped scoliosis of the T-spine. Old left clavicle fracture. XR/XR chest 1V portable [id number] IMPRESSION: 1. Significantly reduced right-sided pleural effusion secondary to thoracentesi s. No pneumothorax is seen. 2. Increasing left-sided pleural effusion since prior study.
[2023-01-06 11:41] VITALS: PULSE 96; RESP 18; O2SAT 97
--- NOTE | 2023-01-06 11:46 | P.PCN_ITS ---
Outpatient Procedures Thoracentesis Procedure Note: Consent signed and on chart: Yes Time Out Performed: Yes Procedure: therapeutic thoracentesis and diagnostic thoracentesis Location: Right Local anesthetic used: lidocaine 1% Bedside ultrasound used: yes, pleural effusion confirmed and location marked and yes, real-time guidance Preparation: 10 blade used to make erlinda in skin Amount of fluid obtained (mL): 1900 Fluid: other (coffee colored - frothy) Post Procedure Exam: awake, alert, normal BP, normal HR and normal SpO2 Post-procedure chest x-ray ordered: Yes Estimated blood loss (mL): 5 Patient Tolerated Procedure: well and no complications Procedure Note: Pulmonary & Critical Care Medicine Procedure - Ultrasound guided Thoracentesis Procedure:CPT 72361: Pleural space aspiration with imaging guidance utilizing thoracentesis, needle, or catheter. Indication: Right pleural effusion Circle Cutting Saw Operator(s): Freddy Wardr Consent: Signed and placed in chart Anesthesia: 10 cc 1% lidocaine without epinephrine Description: Chest X ray reviewed and Pleural effusion was localized using ultrasound guidance and the appropriate site was marked accordingly. A time out was performed. My hands were washed? immediately prior to the procedure. I wore a surgical cap, mask with? protective eyewear, sterile gown and sterile gloves throughout the? procedure. The patient was placed in appropriate position, area of interest was sterilized with chlorhexidine skin prep and draped in a sterile manner. 1% lidocaine was used to anesthesize the skin, subcutaneous tissue, superior aspect of the rib periosteum and parietal? pleura. A finder needle was then introduced over the superior aspect of? the rib to locate the pleural fluid;5 cc dark coffee colored fluid was aspirated. A 10-blade scalpel was used to erlinda the? skin at the insertion site. The Dihb-h-Faszvvoh needle was then? introduced through the skin incision into the pleural space using? negative aspiration pressure and the red colormetric indicator to confirm? appropriate positioning of the needle. The thoracentesis catheter was? then threaded without difficulty. 1900 CC dark coffee colored fluid was removed? without difficulty. The catheter was then removed. No immediate? complications were noted during the procedure. The fluid will be sent for? studies.? Estimated blood loss is 5 - 10 CC. ? Ultrasound guidance used: yes. EBL: 5 cc Complications: None PCXR: A post-procedure chest? x-ray did not show pneumothorax.
[2023-01-06 12:32] LABS: Body Fluid Polynuclear #Cells 0.292; Body Fluid WBC 338 /uL; Monocytes # Body Fluid 0.046
[2023-01-06 12:35] LABS: Color, Body Fluid OTHER
[2023-01-06 12:36] LABS: Apprearance, Body Fluid TURBID
[2023-01-06 13:01] LABS: Body Fluid Specific Gravity 1.025
[2023-01-06 13:02] LABS: Albumin Body Fluid 2.2 g/dL; Amylase Body Fluid 20 U/L; Cholesterol Body Fluid 196 mg/dL (0-200); Fluid Alkaline Phos. 7 IU/L; Total Protein Pleural Fluid 4.4 g/dL; Triglycerides Body Fluid 75 mg/dL (0-150); Uric Acid Body Fluid 6 mg/dL; pH Body Fluid 6.5
[2023-01-06 13:07] LABS: LDH Body Fluid 1357 U/L
[2023-01-06 14:03] LABS: Cyto Order Verification No Order
== END 2023-01-06 11:42 | disposition home or self-care (01) ==
LOC: GILAB 09:59
PROVIDERS: PCP Family Medicine; Visit Provider Internal Medicine Pulmonary Disease
PROC: (CPT 32554; principal; 2023-01-06 10:00)
DX: J90 Pleural effusion, not elsewhere classified (principal)
CPT/HCPCS: 32554; 71045; 80503; 82042; 82150; 82465; 82945; 83615; 83986; 84075; 84157; 84315; 84478; 84560; 87070; 87075; 87205; 88112; 88305; 89050

== ENCOUNTER 2023-03-25 06:45 | Outpatient (CLI) | payer OTHER, SELFPAY ==
--- NOTE | 2023-03-25 | CT_ITS ---
WS: [id number] CT chest wo con [id number] HISTORY: PLEURAL EFFUSION TECHNIQUE: Axial imaging performed through the thorax. Coronal and sagittal reformats are submitted. All CT scans at [facility] use at least one of these dose optimization techniques: automated exposure control; mA and/or kV adjustment per patient size (includes targeted exams where dose is mat ched to clinical indication); or iterative reconstruction. CONTRAST: None DLP: 558.97 mGy.cm COMPARISON: 12/22/2022 Large bilateral pleural effusions are reidentified. LEFT pleural effusion extends over a length of 21 cm. RIGHT pleural effusion extends over length of 20 cm. Simple appearing pleural effusions. There i s mass effect upon the adjacent lung. There are a few scattered areas of groundglass attenuation in t he upper lung reyes. Benign pulmonary calcifications RIGHT lower lobe. No change in the LEFT upper l obe pulmonary nodule measuring 6 mm. Nodule is being displaced further by the pleural effusion. Heart and pericardium: Normal size heart with no pericardial effusion. Mediastinum and everton: Small mediastinal and hilar lymph nodes are unchanged. Vessels: Very mild atherosclerosis aorta. Normal size pulmonary artery. Chest wall and lower neck: No soft tissue masses. Upper abdomen: Normal adrenal glands. Splenic granulomata. Hepatic granulomata. Osseous structures: No destructive process. CT/CT chest wo con [id number] IMPRESSION: 1. Large bilateral pleural effusions. 2. The RIGHT pleural effusion has very slightly decreased in size since 12/22/19 23. 3. Diameter of the LEFT pleural effusion has slightly increased in size since 12/22/2022. 4. A few scattered stable groundglass opacifications. LEFT upper lobe 6 mm nod ule is unchanged.
== END 2023-03-25 06:46 | disposition home or self-care (01) ==
PROVIDERS: PCP Family Medicine
DX: J90 Pleural effusion, not elsewhere classified (principal)
CPT/HCPCS: 71250

== ENCOUNTER 2023-04-09 12:35 | Outpatient (CLI) | payer OTHER, SELFPAY ==
[2023-04-09 13:01] VITALS: PULSE 107; RESP 18; O2SAT 91
[2023-04-09] MEDS: albuterol 2.5 mg/3 mL Neb INHALATION (13:01)
[2023-04-09 13:06] VITALS: PULSE 99
== END 2023-04-09 12:36 | disposition home or self-care (01) ==
PROVIDERS: PCP Family Medicine
DX: J90 Pleural effusion, not elsewhere classified (principal)
CPT/HCPCS: 94060; 94726; 94729; J7613

== ENCOUNTER 2023-06-23 12:55 | Outpatient (CLI) | payer OTHER, SELFPAY ==
--- NOTE | 2023-06-23 13:14 | CT_ITS ---
WS: [id number] CT CHEST TECHNIQUE: Contrast enhanced CT of the chest with coronal and sagittal reformatted images. CLINICAL INFORMATION: PLEURAL EFFUSION COMPARISON: CT 03/25/2023 and 12/22/2022 DLP: 506.[address] scans at [facility] use at least one of these dose optimization techniques: automated e xposure control; mA and/or kV adjustment per patient size (includes targeted exams where dose is matc hed to clinical indication); or iterative reconstruction. FINDINGS: Bilateral chest tubes in place. Moderate left pleural effusion improved compared to 03/25/2023. Tiny r ight pleural effusion. Compressive atelectasis right lower lobe. Small amount of peripheral pleural f luid and atelectasis in the right middle lobe. Calcified granuloma right lower lobe. Few hazy groundg lass opacities in both upper lobes likely inflammatory. Left upper lobe semisolid nodule measuring 7. 5 mm is unchanged. Additional noncalcified nodule left upper lobe laterally measuring 4.3 appears sta ble since 12/22/2022. Tiny nodule right middle lobe is stable. Subsegmental atelectasis left lower lobe. Normal caliber thoracic aorta. Proximal main pulmonary cezar monica appear normal. No mediastinal or hilar lymphadenopathy. No axillary lymphadenopathy. Incidental splenic and hepatic granulomas. Celiac and SMA are patent. Adrenal glands are normal. Part ially visualized left renal cyst measuring 7 mm. Mild thoracic curve. Mild thoracic kyphosis. IMPRESSION: 1. Moderate left pleural effusion decreased compared to 03/25/2023. Small right pleural effusion with right basilar atelectasis. 2. Bilateral chest tubes in place. 3. Noncalcified nodules left upper lobe measuring 7.5 mm and 4.3 mm are stable compared to the previ ous examinations. 4. Tiny stable nodule right middle lobe measuring 3 mm. 5. Subsegmental atelectasis in the lower lobes and right middle lobe. 6. Few scattered groundglass opacities in the upper lobes likely inflammatory similar to the previou s exams.
[2023-06-23] MEDS: iohexol 350 mg/mL 500 mL Btl (per mL) IV (13:34)
[2023-06-23 13:53] VITALS: PULSE 100; RESP 18; O2SAT 98
[2023-06-23] MEDS: albuterol 2.5 mg/3 mL Neb INHALATION (13:53)
[2023-06-23 13:58] VITALS: PULSE 102
== END 2023-06-23 12:56 | disposition home or self-care (01) ==
LOC: RAD 12:59
PROVIDERS: PCP Family Medicine; Visit Provider Internal Medicine Critical Care Medicine
DX: J90 Pleural effusion, not elsewhere classified (principal); R94.2 Abnormal results of pulmonary function studies; J98.11 Atelectasis; R91.8 Other nonspecific abnormal finding of lung field
CPT/HCPCS: 71260; 94060; 94726; 94729; J7613; Q9967

== ENCOUNTER 2024-03-11 13:51 | Outpatient (CLI) | payer OTHER, SELFPAY ==
--- NOTE | 2024-03-11 14:00 | CT_ITS ---
WS: [id number] CT chest w con* [id number] HISTORY: right sided pain TECHNIQUE: Axial imaging performed through the thorax. Coronal and sagittal reformats are submitted. All CT scans at [facility] use at least one of these dose optimization techniques: automated exposure control; mA and/or kV adjustment per patient size (includes targeted exams where dose is mat ched to clinical indication); or iterative reconstruction. CONTRAST: Omnipaque 350; 100 mL IV. DLP: 636.81 mGy.cm COMPARISON: 06/23/2023 Lungs and central airway: Volume loss of each lung due to enlarging bilateral pleural fluid collectio ns. Mild hazy groundglass attenuation scattered throughout both lungs. No mass. Pleura: Bilateral enlarging pleural fluid collections. There is enhancement of both the parietal and visceral pleura. Bilateral drainage catheters are noted within the effusions. There is also air withi n the effusions. This area may be client support representative of infection or manipulation of the tubes. The RIGHT pleural collection extends over a length of 18 cm. The LEFT collection extends over a length of 15 c m. Heart and pericardium: Normal size heart with no pericardial effusion. Mediastinum and everton: No mediastinum or hilar adenopathy. Vessels: Normal size aorta. Normal size pulmonary artery. Chest wall and lower neck: No soft tissue masses. Upper abdomen: New mixed attenuation in the liver. May be a component of hepatic steatosis with spari ng. Neoplasm is not excluded. The area of concern measures 3.6 x 2.9 cm. This can be further evaluate d by ultrasound. Hepatic and splenic granulomata. No adrenal mass. Osseous structures: No destructive process. IMPRESSION: 1. Bilateral pleural fluid collections with pleural enhancement, both parietal and visceral pleura e nhance. Fluid collections may be empyemas. There is air within each collection but there are also ple ural drains present. Air may be related to infection or manipulation of the drains. 2. Both of these pleural fluid collections have increased in size since 06/23/2023. 3. No adenopathy. 4. New low-attenuation mass in the RIGHT lobe of the liver measures 3.6 x 2.9 cm. Differential inclu dariel primary liver lesion, metastasis or hepatic steatosis. Recommend further evaluation by ultrasound . Notified Winter Cox DO at 03/11/2024 3:27 PM.
[2024-03-11] MEDS: iohexol 350 mg/mL 500 mL Btl (per mL) IV (15:19)
== END 2024-03-11 13:52 | disposition home or self-care (01) ==
LOC: RAD 13:51
PROVIDERS: PCP Family Medicine Adult Medicine; Visit Provider Family Medicine
DX: J90 Pleural effusion, not elsewhere classified (principal); R91.8 Other nonspecific abnormal finding of lung field; R16.0 Hepatomegaly, not elsewhere classified
CPT/HCPCS: 71260; Q9967

== ENCOUNTER 2024-03-11 15:59 | Emergency (ER) | payer OTHER, SELFPAY ==
[2024-03-11 16:02] VITALS: BP 106/68; PULSE 119; RESP 18; TEMP 37.7; O2SAT 93
--- NOTE | 2024-03-11 17:30 | ED_ITS ---
Documented by User: Nikki James MD 03/11/24 17:37 HPI - Recheck/Abnormal Lab/Rx 2 General: Chief Complaint: Recheck/Abnormal Lab/Rx Stated Complaint: Sent by Dr Ramirez , Abnormal CT Time Seen by Provider: 03/11/24 16:33 History of Present Illness: Patient with a history of rheumatoid arthritis with rheumatoid effusions in his bilateral lungs. For about the last 6 months he has had a drain placed in his bilateral anterior chest wall that he drains his fluid once a week. He says he bumped it on the right about 2 weeks ago and has been having trouble drawing any fluid since and has had worse pain. Today he had a CT scan and his doctor called and told him to go to the emergency room. They were concerned that these effusions might be bigger and possibly could have an infection. He has no redness or swelling of the skin overlying the area where the tube comes out. He says he just had some more pain associated on that right side. No fevers. No altered mental status. No abdominal pain. No nausea or vomiting. PFSH ED 2 PFSH: Medical History Asthma Pleural effusion Hx, used to see Dr. Tariq Shortness of breath Current chronic use of systemic steroids Seronegative rheumatoid arthritis of both hands History of colon polyps Rheumatoid arthritis with rheumatoid factor Surgical History Status post colonoscopy with polypectomy (06/19/20) History of elbow surgery History of appendectomy Family History Other Diabetes Denies family history of Rheumatoid arthritis Lupus CAD (coronary artery disease) Cancer Social History Smoking and tobacco/nicotine status: former use of tobacco/nicotine (1PPD x30yrs) Quit status (tobacco/nicotine): has quit using Year quit tobacco: 2019 - 1PPD x 20 Years Second hand smoke exposure: No Alcohol intake: former Substance/Drug Use: never Lives independently: Yes Household members: none Marital status: Single Current occupational status: employed Current occupation: [employer] Current occupational exposures/hazards: No Do you think of yourself as: Straight/Heterosexual Current gender identity: Male Physical Exam 2 Narrative: EXAM NARRATIVE: General: Alert, no acute distress. Skin: Warm, dry. Head: Normocephalic, atraumatic. Neck: Supple, trachea midline. Eye: Extraocular movements are intact. Ears, nose, mouth and throat: mucosa moist. Cardiovascular: Regular, Normal peripheral perfusion. Respiratory: Diminished breath sounds posteriorly, chest tubes are in place. Overlying skin does not appear infected or red., respirations are non-labored, breath sounds are equal, Symmetrical chest wall expansion. Gastrointestinal: Soft, Nontender, Non distended, Normal bowel sounds. Musculoskeletal: Normal ROM, no deformity. Neurological: Alert and oriented, No focal neurological deficit observed. Psychiatric: Cooperative, appropriate mood & affect. Course 2 Vital Signs: Vital signs: Vital Signs Temperature 99.8 F H 03/11/24 16:02 Pulse Rate 88 03/11/24 19:53 Respiratory Rate 16 03/11/24 19:53 Blood Pressure 106/68 03/11/24 16:02 Pulse Oximetry 92 03/11/24 19:53 Oxygen Delivery Me thod Room Air 03/11/24 18:05 MDM - Recheck/Abnormal Lab/Rx Medical Decision Making Medical decision making: Differential diagnosis including but not limited to and based on the above HPI, review of systems and physical exam: Based on CT scan that was done as an outpatient there is concern for infection of the pleural effusion. We are attempting to draw fluid off of this. Pulmonology recommends sending the fluid for cell count culture Orders placed to evaluate differential diagnosis based on the above differential, HPI and physical exam Lab Review: Laboratory results were reviewed and interpreted by myself the emergency room physician. Consultation: I spoke with mortgage processor, Dr. Alvarado. He recommends outpatient follow-up with the CT surgeon in the near future. Versus possible transfer or admission here with replacement of the tube. Lab work has been ordered. I reviewed the patient's medical record. Patient care transferred to Dr. Last at shift change. Lab Data 03/11/24 17:23 03/11/24 17:23 Laboratory Results WBC 14.66 10^3/uL (3.29-11.43) H 03/11/24 17:23 RBC 3.63 10^6/uL (3.85-5.65) L 03/11/24 17:23 Hgb 11.10 g/dL (11.27-16.99) L 03/11/24 17:23 Hct 34.8 % (37-53) L 03/11/24 17:23 MCV 95.9 fl (82-101) 03/11/24 17:23 MCH 30.6 pg (27-33) 03/11/24 17:23 MCHC 31.9 g/dL (30-55) 03/11/24 17:23 RDW 15.0 % (12.1-15.1) 03/11/24 17:23 Plt Count 414 10^3/cmm (157-399) H 03/11/24 17:23 MPV 9.3 fL (7.4-10.4) 03/11/24 17:23 Neut % (Auto) 78.1 % 03/11/24 17:23 Lymph % (Auto) 13.7 % 03/11/24 17:23 [place] % (Auto) 5.0 % 03/11/24 17:23 Eos % (Auto) 1.9 % 03/11/24 17:23 Baso % (Auto) 0.5 % 03/11/24 17:23 Neut # (Auto) 11.44 10^3/uL (1.8-7.7) H 03/11/24 17:23 Lymph # (Auto) 2.0 10^3/uL (0.8-4.8) 03/11/24 17:23 [place] # (Auto) 0.7 10^3/uL (0.2-0.9) 03/11/24 17:23 Eos # (Auto) 0.3 10^3/uL (0.0-0.8) 03/11/24 17:23 Baso # (Auto) 0.1 10^3/uL (0.0-0.1) 03/11/24 17:23 Nucleated RBC % (auto) 0 % 03/11/24 17:23 Total Counted Not Reportable 03/11/24 18:40 Nucleated RBCs # 0.0 /100WBC 03/11/24 17:23 PT 16.80 SECONDS (12.1-14.9) H 03/11/24 17:23 INR 1.32 (0.8-1.2) H 03/11/24 17:23 APTT 34.9 SECONDS (23.9-36.7) 03/11/24 17:23 Sodium 129 mmol/L (136-145) L 03/11/24 17:23 Potassium 4.2 mmol/L (3.5-5.1) 03/11/24 17:23 Chloride 91 mmol/L (98-107) L 03/11/24 17:23 Carbon Dioxide 26 mmol/L (22-29) 03/11/24 17:23 Anion Gap 16.2 (5-19) 03/11/24 17:23 BUN 17 mg/dL (6-20) 03/11/24 17:23 Creatinine 1.6 mg/dL (0.7-1.2) H 03/11/24 17:23 GFR Calculation 45.1 mL/min (90-130) L 03/11/24 17:23 Glucose 106 mg/dL (65-115) 03/11/24 17:23 Calculated Osmolality 270 mOsm/kg (285-295) L 03/11/24 17:23 Lactic Acid 1.1 mmol/L (0.5-2.2) 03/11/24 17:23 Calcium 8.2 mg/dL (8.5-10.5) L 03/11/24 17:23 Total Bilirubin 0.3 mg/dL (0.15-1.2) 03/11/24 17:23 AST 10 U/L (0-40) 03/11/24 17:23 ALT 9 U/L (0-41) 03/11/24 17:23 Alkaline Phosphatase 81 U/L (40-130) 03/11/24 17:23 C-Reactive Protein 190.0 mg/L (0.0-4.9) H 03/11/24 17:23 Total Protein 7.5 g/dL (6.6-8.7) 03/11/24 17:23 Albumin 2.8 g/dL (3.5-5.2) L 03/11/24 17:23 Globulin 4.7 g/dL (1.3-4.6) H 03/11/24 17:23 Pleural Color Red (Pale Yellow) H 03/11/24 18:40 Pleural Appearance Cloudy (CLEAR) 03/11/24 18:40 Pleural WBC 27198.000 /uL (0-1000) H 03/11/24 18:40 Pleural RBC 41.000 10^3/uL 03/11/24 18:40 Pleural Other Cells Not Reportable 03/11/24 18:40 Pleural Polynuclear % 85 % 03/11/24 18:40 Pleural Mononuclear % 16 % 03/11/24 18:40 Pleural Albumin 1.8 g/dL 03/11/24 18:40 Pleural LDH 1608 U/L 03/11/24 18:40 Pleural Glucose 2.0 mg/dL 03/11/24 18:40 Path Cons w/Slide Yes 03/11/24 18:40 Discharge Plan Discharge Patient Disposition: Home Clinical Impression: Complication of chest tube Qualifiers: Encounter type: initial encounter Qualified Code(s): T85.9XXA - Unspecified complication of internal prosthetic device, implant and graft, initial encounter Condition: Stable Prescriptions: No Action potassium chloride 20 mEq tablet extended release 20 meq PO DAILY Qty: 90 1RF albuterol sulfate [ProAir HFA] 90 mcg/actuation HFA aerosol inhaler 2 puff inhalation QID PRN (Reason: shortness of breath or wheezing) Qty: 8.5 3RF folic acid 1 mg tablet 1 mg PO DAILY Qty: 90 3RF prednisone 20 mg tablet See Rx Instructions PO .COMPLEX PRN (Reason: joint pain flare) Qty: 30 1RF Rx Instructions: take 1 tab daily for 3-7 days as needed for arthritis flare PO PRN; Humira Pen 40 mg/0.8 mL pen injector kit 40 mg SUBCUT Q14D Qty: 2 3RF hydroxychloroquine 200 mg tablet See Rx Instructions .ROUTE .COMPLEX Qty: 60 3RF Hold Instructions: Doctor's Order Dose Instruction: TAKE 1 TABLET BY MOUTH TWICE DAILY Rx Instructions: TAKE 1 TABLET BY MOUTH TWICE DAILY methotrexate sodium 2.5 mg tablet 20 mg PO .Q7days Qty: 40 3RF Rx Instructions: Split dose Take 4 tabs by mouth in AM and 4 in PM on same day 1x a week prednisone 10 mg tablet 10 mg PO DAILY Qty: 30 3RF furosemide 40 mg tablet 40 mg PO DAILY Qty: 30 3RF pantoprazole 40 mg tablet,delayed release (DR/EC) 40 mg PO DAILY Qty: 90 1RF Rx Instructions: TAKE 1 TABLET BY MOUTH EVERY DAY Discharge Orders: Discharge ED (Routine); Ordered 03/11/24 Ordered By: Delano Last Referrals: José Manuel Arreola MD [Primary Care Provider] - 1 week Patient Instructions: Chest Tubes (DC) Activity Restrictions/Additional Instructions: After flushing your chest tube it started draining appropriately. Your fluid removed from the chest tube is sent off for further analysis. We will call you once we get these results back. Otherwise continue chest tube maintenance and draining as previously assigned. Keep follow-up with your physicians as needed. Coding Level of Care Code ED Marketing Secretary for [employer] Documented by User: Delano Last DO 03/12/24 00:36 HPI - Recheck/Abnormal Lab/Rx 2 General: Chief Complaint: Recheck/Abnormal Lab/Rx Stated Complaint: Sent by Dr Ramriez , Abnormal CT Time Seen by Provider: 03/11/24 16:33 PFSH ED 2 PFSH: Medical History Asthma Pleural effusion Hx, used to see Dr. Tariq Shortness of breath Current chronic use of systemic steroids Seronegative rheumatoid arthritis of both hands History of colon polyps Rheumatoid arthritis with rheumatoid factor Surgical History Status post colonoscopy with polypectomy (06/19/20) History of elbow surgery History of appendectomy Family History Other Diabetes Denies family history of Rheumatoid arthritis Lupus CAD (coronary artery disease) Cancer Social History Smoking and tobacco/nicotine status: former use of tobacco/nicotine (1PPD x30yrs) Quit status (tobacco/nicotine): has quit using Year quit tobacco: 2020 - 1PPD x 20 Years Second hand smoke exposure: No Alcohol intake: former Substance/Drug Use: never Lives independently: Yes Household members: none Marital status: Single Current occupational status: employed Current occupation: [employer] Current occupational exposures/hazards: No Do you think of yourself as: Straight/Heterosexual Current gender identity: Male Course 2 Vital Signs: Vital signs: Vital Signs Temperature 99.8 F H 03/11/24 16:02 Pulse Rate 88 03/11/24 19:53 Respiratory Rate 16 03/11/24 19:53 Blood Pressure 106/68 03/11/24 16:02 Pulse Oximetry 92 03/11/24 19:53 Oxygen Delivery Me thod Room Air 03/11/24 18:05 MDM - Recheck/Abnormal Lab/Rx Medical Decision Making Medical decision making: Differential diagnosis including but not limited to and based on the above HPI, review of systems and physical exam: Based on CT scan that was done as an outpatient there is concern for infection of the pleural effusion. We are attempting to draw fluid off of this. Pulmonology recommends sending the fluid for cell count culture Orders placed to evaluate differential diagnosis based on the above differential, HPI and physical exam Lab Review: Laboratory results were reviewed and interpreted by myself the emergency room physician. Consultation: I spoke with mortgage processor, Dr. Alvarado. He recommends outpatient follow-up with the CT surgeon in the near future. Versus possible transfer or admission here with replacement of the tube. Lab work has been ordered. I reviewed the patient's medical record. Patient care transferred to Dr. Last at shift change. Accepted the patient at shift change. We are waiting for lab work to come back. Nursing went in and flush the drain and it started draining significantly better. Patient is still feeling good. Patient is ready to go home. Lab work is pending on the fluid. We will call the patient with the results of the fluid test especially if treatment needs to be changed. We will hold off on any treatment for the time being. Patient is aware and comfortable with this decision. Lab Data 03/11/24 17:23 03/11/24 17:23 Laboratory Results WBC 14.66 10^3/uL (3.29-11.43) H 03/11/24 17: RBC 3.63 10^6/uL (3.85-5.65) L 03/11/24 17:23 Hgb 11.10 g/dL (11.27-16.99) L 03/11/24 17: Hct 34.8 % (37-53) L 03/11/24 17:23 MCV 95.9 fl (82-101) 03/11/24 17:23 MCH 30.6 pg (27-33) 03/11/24 17:23 MCHC 31.9 g/dL (30-55) 03/11/24 17:23 RDW 15.0 % (12.1-15.1) 03/11/24 17:23 Plt Count 414 10^3/cmm (157-399) H 03/11/24 17:23 MPV 9.3 fL (7.4-10.4) 03/11/24 17:23 Neut % (Auto) 78.1 % 03/11/24 17:23 Lymph % (Auto) 13.7 % 03/11/24 17:23 [place] % (Auto) 5.0 % 03/11/24 17:23 Eos % (Auto) 1.9 % 03/11/24 17:23 Baso % (Auto) 0.5 % 03/11/24 17:23 Neut # (Auto) 11.44 10^3/uL (1.8-7.7) H 03/11/24 17:23 Lymph # (Auto) 2.0 10^3/uL (0.8-4.8) 03/11/24 17:23 [place] # (Auto) 0.7 10^3/uL (0.2-0.9) 03/11/24 17:23 Eos # (Auto) 0.3 10^3/uL (0.0-0.8) 03/11/24 17:23 Baso # (Auto) 0.1 10^3/uL (0.0-0.1) 03/11/24 17:23 Nucleated RBC % (auto) 0 % 03/11/24 17:23 Total Counted Not Reportable 03/11/24 18:40 Nucleated RBCs # 0.0 /100WBC 03/11/24 17:23 PT 16.80 SECONDS (12.1-14.9) H 03/11/24 17:23 INR 1.32 (0.8-1.2) H 03/11/24 17:23 APTT 34.9 SECONDS (23.9-36.7) 03/11/24 17:23 Sodium 129 mmol/L (136-145) L 03/11/24 17:23 Potassium 4.2 mmol/L (3.5-5.1) 03/11/24 17:23 Chloride 91 mmol/L (98-107) L 03/11/24 17:23 Carbon Dioxide 26 mmol/L (22-29) 03/11/24 17:23 Anion Gap 16.2 (5-19) 03/11/24 17:23 BUN 17 mg/dL (6-20) 03/11/24 17:23 Creatinine 1.6 mg/dL (0.7-1.2) H 03/11/24 17:23 GFR Calculation 45.1 mL/min (90-130) L 03/11/24 17:23 Glucose 106 mg/dL (65-115) 03/11/24 17:23 Calculated Osmolality 270 mOsm/kg (285-295) L 03/11/24 17:23 Lactic Acid 1.1 mmol/L (0.5-2.2) 03/11/24 17:23 Calcium 8.2 mg/dL (8.5-10.5) L 03/11/24 17:23 Total Bilirubin 0.3 mg/dL (0.15-1.2) 03/11/24 17:23 AST 10 U/L (0-40) 03/11/24 17:23 ALT 9 U/L (0-41) 03/11/24 17:23 Alkaline Phosphatase 81 U/L (40-130) 03/11/24 17:23 C-Reactive Protein 190.0 mg/L (0.0-4.9) H 03/11/24 17:23 Total Protein 7.5 g/dL (6.6-8.7) 03/11/24 17:23 Albumin 2.8 g/dL (3.5-5.2) L 03/11/24 17:23 Globulin 4.7 g/dL (1.3-4.6) H 03/11/24 17:23 Pleural Color Red (Pale Yellow) H 03/11/24 18:40 Pleural Appearance Cloudy (CLEAR) 03/11/24 18:40 Pleural WBC 61437.000 /uL (0-1000) H 03/11/24 18:40 Pleural RBC 41.000 10^3/uL 03/11/24 18:40 Pleural Other Cells Not Reportable 03/11/24 18:40 Pleural Polynuclear % 85 % 03/11/24 18:40 Pleural Mononuclear % 16 % 03/11/24 18:40 Pleural Albumin 1.8 g/dL 03/11/24 18:40 Pleural LDH 1608 U/L 03/11/24 18:40 Pleural Glucose 2.0 mg/dL 03/11/24 18:40 Path Cons w/Slide Yes 03/11/24 18:40 All radiology interpretation(s) finalized by discharge Discharge Plan Discharge Patient Disposition: Home Clinical Impression: Complication of chest tube Qualifiers: Encounter type: initial encounter Qualified Code(s): T85.9XXA - Unspecified complication of internal prosthetic device, implant and graft, initial encounter Condition: Stable Prescriptions: No Action potassium chloride 20 mEq tablet extended release 20 meq PO DAILY Qty: 90 1RF albuterol sulfate [ProAir HFA] 90 mcg/actuation HFA aerosol inhaler 2 puff inhalation QID PRN (Reason: shortness of breath or wheezing) Qty: 8.5 3RF folic acid 1 mg tablet 1 mg PO DAILY Qty: 90 3RF prednisone 20 mg tablet See Rx Instructions PO .COMPLEX PRN (Reason: joint pain flare) Qty: 30 1RF Rx Instructions: take 1 tab daily for 3-7 days as needed for arthritis flare PO PRN; Humira Pen 40 mg/0.8 mL pen injector kit 40 mg SUBCUT Q14D Qty: 2 3RF hydroxychloroquine 200 mg tablet See Rx Instructions .ROUTE .COMPLEX Qty: 60 3RF Hold Instructions: Doctor's Order Dose Instruction: TAKE 1 TABLET BY MOUTH TWICE DAILY Rx Instructions: TAKE 1 TABLET BY MOUTH TWICE DAILY methotrexate sodium 2.5 mg tablet 20 mg PO .Q7days Qty: 40 3RF Rx Instructions: Split dose Take 4 tabs by mouth in AM and 4 in PM on same day 1x a week prednisone 10 mg tablet 10 mg PO DAILY Qty: 30 3RF furosemide 40 mg tablet 40 mg PO DAILY Qty: 30 3RF pantoprazole 40 mg tablet,delayed release (DR/EC) 40 mg PO DAILY Qty: 90 1RF Rx Instructions: TAKE 1 TABLET BY MOUTH EVERY DAY Discharge Orders: Discharge ED (Routine); Ordered 03/11/24 Ordered By: Delano Last Referrals: José Manuel Arreola MD [Primary Care Provider] - 1 week Patient Instructions: Chest Tubes (DC) Activity Restrictions/Additional Instructions: After flushing your chest tube it started draining appropriately. Your fluid removed from the chest tube is sent off for further analysis. We will call you once we get these results back. Otherwise continue chest tube maintenance and draining as previously assigned. Keep follow-up with your physicians as needed. Coding Level of Care Code ED Marketing Secretary for Melissa De La Cruz
[2024-03-11 17:43] VITALS: O2SAT 92
[2024-03-11 17:43] LABS: Basophils # 0.1 10^3/uL (0.0-0.1); Basophils % 0.5 %; Eosinophils # 0.3 10^3/uL (0.0-0.8); Eosinophils % 1.9 %; Hematocrit 34.8 % (37-53); Lymphocytes % 13.7 %; Mean Corpuscular HGB Conc 31.9 g/dL (30-55); Mean Corpuscular Hemoglobin 30.6 pg (27-33); Mean Corpuscular Volume 95.9 fl (82-101); Mean Platelet Volume 9.3 fL (7.4-10.4); Monocytes # 0.7 10^3/uL (0.2-0.9); Neutrophils # 11.44 10^3/uL (1.8-7.7); Neutrophils % 78.1 %; Nucleated Red Blood Cells % 0 %; Platelet Count 414 10^3/cmm (157-399); Red Blood Count 3.63 10^6/uL (3.85-5.65); White Blood Count 14.66 10^3/uL (3.29-11.43)
[2024-03-11 17:51] LABS: INR 1.32 (0.8-1.2); Partial Thromboplastin Time 34.9 SECONDS (23.9-36.7)
[2024-03-11 17:54] LABS: Lactic Sepsis W/Reflex 1.1 mmol/L (0.5-2.2)
[2024-03-11 17:55] LABS: Alanine Aminotransferase 9 U/L (0-41); Albumin Level 2.8 g/dL (3.5-5.2); Alkaline Phosphatase 81 U/L (40-130); Anion Gap 16.2 (5-19); Aspartate Amino Transferase 10 U/L (0-40); Blood Urea Nitrogen 17 mg/dL (6-20); Calcium 8.2 mg/dL (8.5-10.5); Carbon Dioxide 26 mmol/L (22-29); Chloride 91 mmol/L (98-107); Globulin 4.7 g/dL (1.3-4.6); Glomerular Filtration Rate 45.1 mL/min (90-130); Glucose 106 mg/dL (65-115); Osmolality Calculated 270 mOsm/kg (285-295); Potassium 4.2 mmol/L (3.5-5.1); Sodium 129 mmol/L (136-145); Total Bilirubin 0.3 mg/dL (0.15-1.2); Total Protein 7.5 g/dL (6.6-8.7)
[2024-03-11 17:56] LABS: Creatinine Clr Calc Pharmacy 71.8952
[2024-03-11 18:05] VITALS: PULSE 100; O2SAT 93
[2024-03-11 18:58] LABS: Appearance, Pleural Fluid CLOUDY (CLEAR); Color, Pleural Fluid Red (Pale Yellow); Cyto Order Verification No Order; PATH Referal YES
[2024-03-11 19:05] LABS: Mononuclear %, Pleural Fluid 16 %; Polynuclear Cells, Pleural % 85 %
[2024-03-11 19:51] LABS: Pleural Fluid Albumin 1.8 g/dL
[2024-03-11 19:53] VITALS: PULSE 88; RESP 16; O2SAT 92
[2024-03-11 20:02] LABS: LDH Pleural Fluid 1608 U/L
== END 2024-03-11 19:53 | disposition home or self-care (01) ==
PROVIDERS: Emergency Medicine; Emergency Provider Emergency Medicine; PCP Family Medicine Adult Medicine
DX: T85.9XXA Unspecified complication of internal prosthetic device, implant and graft, initial encounter (principal); Y82.8 Other medical devices associated with adverse incidents; Z87.891 Personal history of nicotine dependence
CPT/HCPCS: 36415; 80053; 80503; 82042; 82945; 83605; 83615; 85025; 85610; 85730; 86140; 87040; 87205; 89050; 99283

== ENCOUNTER 2024-03-21 08:27 | Outpatient (CLI) | payer OTHER, SELFPAY ==
--- NOTE | 2024-03-21 08:30 | US_ITS ---
WS: [id number] RIGHT UPPER QUADRANT ULTRASOUND HISTORY: mass of liver COMPARISON: Chest CT 03/11/2024, 06/23/2023 Liver: 14.6 cm in length. Liver is normal size. Peripheral mass in the RIGHT lobe of the liver measur es 3.8 x 1.8 x 1.7 cm and corresponds to the mass seen on recent CT. There is no increased vascularit y. No additional abnormalities are identified. No displacement of the adjacent vessels. Portal Vein: Normal hepatopetal flow with monophasic waveform. Gallbladder: Normally distended gallbladder with no stones or wall thickening. CBD: 0.4 cm Pancreas: Not visualized. Right kidney: 11.0 cm in length. Normal size and echogenicity. No hydronephrosis or mass. Aorta and IVC: Unremarkable abdominal aorta and IVC. No ascites. US/US liver [id number] IMPRESSION: 1. Hyperechoic mass in the peripheral RIGHT lobe of the liver is identified me asuring 3.8 x 1.8 x 1.7 cm. This corresponds to the mass seen on recent CT. The increased echogenicity suggest this is probably hepatic steatosis versus laina nous hemangioma but should be followed to confirm. With no history of malignanc y this is less likely neoplastic. Additional evaluation imaging includes, follo w-up CT or MRI liver with liver mass protocol or follow-up ultrasound in 3 kg hs to reevaluate this hypoechoic mass to document stability. 2. Negative gallbladder.
== END 2024-03-21 08:28 | disposition home or self-care (01) ==
LOC: RAD 08:28
PROVIDERS: PCP Family Medicine Adult Medicine; Visit Provider Family Medicine
DX: R16.0 Hepatomegaly, not elsewhere classified (principal)
CPT/HCPCS: 76705

== ENCOUNTER 2024-04-15 15:27 | Outpatient (CLI) | payer OTHER, SELFPAY ==
--- NOTE | 2024-04-15 15:45 | XRR_ITS ---
PROCEDURE INFORMATION: Exam: XR Chest Exam date and time: 04/15/2024 3:47 PM Age: 53 years old Clinical indication: Condition or disease; Lung condition and disease; Other: Not specified; Prior surgery; Surgery date: 6+ months; Surgery type: Chest tubes; Patient HX: Pleural effusion, tubes in chest to drain fluid possibly clogged from ra according to patient; Additional info: Bilateral pleural effusion S/P drainage TECHNIQUE: Imaging protocol: Radiologic exam of the chest. Views: 2 views. COMPARISON: CT chest w con* [id number] 11/03/2024 14:12 FINDINGS: Lungs: Infiltrates versus atelectasis at the right lung base Pleural spaces: There are bilateral, tunneled pleural drains in place. There are small, partially loculated bilateral pleural effusions. Heart/Mediastinum: Unremarkable. No cardiomegaly. Bones/joints: Unremarkable. XR/XR chest 2V* [id number] IMPRESSION: 1. Small partially loculated bilateral pleural effusions 2. Infiltrate versus atelectasis at the right lung base
[2024-04-15 15:49] LABS: Mononuclear %, Pleural Fluid 24 %; Mononuclear, Pleural Fluid # 46.744 10^3/uL; Polynuclear Cells, Pleural % 76 %
[2024-04-15 16:31] LABS: Pleural Fluid Albumin 1.7 g/dL; Triglycerides, Pleural Fluid 44 mg/dL
[2024-04-15 16:32] LABS: Appearance, Pleural Fluid CLOUDY (CLEAR); Color, Pleural Fluid Amber (Pale Yellow); Fluid Laterality Right Lower; Pleural Fluid Cholesterol 64 mg/dL; Right Pleural Fluid Right Lung; Total Protein Pleural Fluid 5.4 g/dL
[2024-04-15 16:56] LABS: LDH Pleural Fluid > 1000 U/L
== END 2024-04-15 15:28 | disposition home or self-care (01) ==
LOC: LAB 15:29
PROVIDERS: PCP Family Medicine Adult Medicine; Visit Provider Internal Medicine Pulmonary Disease
DX: J90 Pleural effusion, not elsewhere classified (principal)
CPT/HCPCS: 71046; 80503; 82042; 82465; 82945; 83615; 83986; 84157; 84478; 87015; 87070; 87075; 87077; 87102; 87116; 87186; 87205; 87206; 87801; 89050

== ENCOUNTER → 2024-04-18 09:18 | Day surgery (SDC) | payer OTHER, SELFPAY ==
[2024-04-18 09:34] VITALS: BP 107/74; PULSE 112; RESP 20; TEMP 36.6; O2SAT 96; BMI 28.5
--- NOTE | 2024-04-18 09:51 | W.PM.OPSUD ---
Surgery/Procedure H&P Update DATE OF PROCEDURE: April 18, 2024 DATE H&P PERFORMED: 04/13/24 H&P UPDATE INFORMATION: I have reviewed H&P completed within last 30 days CHANGES TO PREVIOUS DOCUMENTATION: Patient pleural fluid results showed 195 K WBC, fluid was turbid in nature Called lab and added pleural fluid blood cultures, mycobacterial cultures, bio fire bacterial PCR Patient reported that he does not have any symptoms, denied any fever, chills, shortness of breath, fatigue Today scheduled for removal of [place] drain as it appears infected; he started taking linezolid every 12 hours PREOP DIAGNOSIS: suspected infected turner drain and empyema PRIMARY INDICATION FOR PROCEDURE: suspected infected turner drain and empyema on right side PLANNED PROCEDURE: Operation Date: 04/18/24 09:10 Proposed Procedures p [place] Drain Placement Pleurx Catheter Insertion(Not Applicable) - Freddy Wells DatarMD
[2024-04-18] MEDS: lidocaine 1% INJ 10 mL (per mL) 20 ML INJECTION (10:12)
--- NOTE | 2024-04-18 10:46 | P.OP_ITS ---
Operative Report Date of procedure: April 18, 2024 Pre-op diagnosis: Infected right pleural drain Post-op diagnosis: same Procedure done: Removal tunneled right pleural [place] drain catheter Specimens removed/disposition: Pleurx TIP sent for cultures Surgeon: Freddy Ramirez MD Anesthesia: Local (10 mL 1% lidocaine) Complications: None Brief History: Mr. Deonte Adamson is a 53-year-old male with past medical history of seropositive rheumatoid arthritis-currently on immunosuppression-he had chronic recurrent bilateral pleural effusions and has symptomatic dyspnea. He was referred to [facility] for bilateral Pleurx catheter in June 2023 - has been draining them at home without incident but states right tube is not draining as well as previously. No signs of infection around the catheter sites. He is not following up with CT surgery team at [facility] who placed the pleurex catheters as the surgeon left. A few weeks ago; there was an accidental push against the right pleurex insertion site and since then he has had increased pain, decreased drainage, and it just hasn't felt right. He was sent to ER on 03/11/24- insertion site did not show any signs of infections and pleural fluid sent showed elevated wbc with neutrophil predominance.. He comes to clinic on 04/13/2024-repeat pleural studies showed 195 K WBC, fluid was turbid in nature; pleural fluid blood cultures, mycobacterial cultures, [employer] bacterial PCR are pending Patient reported that he does not have any symptoms, denied any fever, chills, shortness of breath, fatigue, however with worsening pleural fluid white count and turbid looking pleural drain with glucose less than 2-suspect empyema and today scheduled for infected right pleural drain removal. He is also started on linezolid Procedure: Mr. Deonte Adamson was taken to the procedure room suite and carefully placed in the left lateral position on the bed with support.? After appropriate timeout of been completed,? the entire posterior right chest wall was sterilely prepped and draped.? The area surrounding the Pleurx catheter insertion site was infiltrated with 10 mL 1% lidocaine was infiltrated.? Utilizing blunt dissection with a hemostat ; freed up the adhesions around the Velcro cuff and adhesions around the Velcro cuff were removed and the catheter was removed with inline traction without difficulty and was intact. A sterile dressing was applied on this exit point.? Patient tolerated the procedure well and he was discharged home.
== END ==
PROVIDERS: PCP Family Medicine Adult Medicine; Visit Provider Internal Medicine Pulmonary Disease
PROC: (CPT 32550; principal; 2024-04-18 09:00)
DX: T85.79XA Infection and inflammatory reaction due to other internal prosthetic devices, implants and grafts, initial encounter (principal); M05.9 Rheumatoid arthritis with rheumatoid factor, unspecified; J90 Pleural effusion, not elsewhere classified; J44.9 Chronic obstructive pulmonary disease, unspecified; J45.909 Unspecified asthma, uncomplicated; I50.31 Acute diastolic (congestive) heart failure; Z87.891 Personal history of nicotine dependence; Y82.9 Unspecified medical devices associated with adverse incidents
CPT/HCPCS: 32552; 87070; 87075; 87077; 87186; 87205; G0463

== ENCOUNTER → 2024-04-19 09:13 | Outpatient (BNVA) | payer OTHER, SELFPAY | PROVIDERS: PCP Family Medicine Adult Medicine; Visit Provider Family Medicine | DX: Z01.818 Encounter for other preprocedural examination (principal) | CPT/HCPCS: 80048 ==

== ENCOUNTER 2024-04-25 15:31 | Outpatient (CLI) | payer OTHER, SELFPAY ==
[2024-04-25 16:55] LABS: Appearance, Pleural Fluid BLOODY (CLEAR); Color, Pleural Fluid Red (Pale Yellow); PATH Referal YES
[2024-04-25 16:56] LABS: Mononuclear %, Pleural Fluid 19 %; Polynuclear Cells, Pleural % 81 %
[2024-04-25 18:15] LABS: Glucose Pleural Fluid < 2.0 mg/dL; LDH Pleural Fluid 7748 U/L; Total Protein Pleural Fluid 5.2 g/dL
== END 2024-04-25 15:32 | disposition home or self-care (01) ==
LOC: LAB 15:33
PROVIDERS: PCP Family Medicine Adult Medicine; Visit Provider Internal Medicine Pulmonary Disease
DX: T85.79XA Infection and inflammatory reaction due to other internal prosthetic devices, implants and grafts, initial encounter (principal); Y83.8 Other surgical procedures as the cause of abnormal reaction of the patient, or of later complication, without mention of misadventure at the time of the procedure
CPT/HCPCS: 80503; 82945; 83615; 84157; 87070; 87075; 87077; 87186; 87205; 89050

== ENCOUNTER 2024-04-27 06:31 | Day surgery (SDC) | payer OTHER, SELFPAY ==
[2024-04-27 06:43] VITALS: BP 132/87; PULSE 115; RESP 18; TEMP 36.6; O2SAT 94
[2024-04-27 07:10] VITALS: BMI 23.1
--- NOTE | 2024-04-27 07:22 | W.PM.OPSUD ---
Surgery/Procedure H&P Update DATE OF PROCEDURE: April 27, 2024 DATE H&P PERFORMED: 04/13/24 H&P UPDATE INFORMATION: I have reviewed H&P completed within last 30 days and I have examined patient prior to procedure CHANGES TO PREVIOUS DOCUMENTATION: pt right pleural fluid was positive for staph and his drain was removed on 04/18/24 pt complained swelling around left pleural drain and his left pleural fluid analysis showed 120K wbc PRIMARY INDICATION FOR PROCEDURE: infected left pleural drain PLANNED PROCEDURE: Operation Date: 04/27/24 07:00 Proposed Procedures p PleurX Removal(Not Applicable) - Freddy Ramirez MD s PleurX Drain Maintenance(Not Applicable) - Freddy Ramirez MD
[2024-04-27 07:31] VITALS: RESP 18; O2SAT 93
[2024-04-27] MEDS: fentaNYL 50 mcg/mL INJ 2mL IVP (07:31)
[2024-04-27] MEDS: lidocaine 1% INJ 10 mL (per mL) XX (07:44)
[2024-04-27 08:01] VITALS: BP 110/76; PULSE 104; RESP 18; TEMP 36.4; O2SAT 93
[2024-04-27 08:15] VITALS: BP 123/82; PULSE 107; RESP 18; O2SAT 95
--- NOTE | 2024-04-27 08:48 | P.OP_ITS ---
Operative Report Date of procedure: April 27, 2024 Pre-op diagnosis: Suspected infected left pleural drain Post-op diagnosis: Same Procedure done: Removal tunneled left pleural [place] drain catheter-[id number] Moderate sedation -85195 Specimens removed/disposition: Pleurx TIP sent for cultures Surgeon: Freddy Ramirez MD Anesthesia: MAC (fentanyl 25 Mg IV push) and Local (15 cc 1% lidocaine infiltrated locally) Brief History: Mr. Deonte Adamson is a 53-year-old male with past medical history of seropositive rheumatoid arthritis-currently on immunosuppression-he had chronic recurrent bilateral pleural effusions and has symptomatic dyspnea. He was referred to [facility] for bilateral Pleurx catheter in June 2023 - has been draining them at home without incident but states right tube is not draining as well as previously. No signs of infection around the catheter sites. He is not following up with CT surgery team at [facility] who placed the pleurex catheters as the surgeon left. On 04/18/2024-his right Pleurx catheter was removed as it was infected and pleural fluid cultures were sent. Patient started on low-dose of Lasix 100 Mg p.o. twice daily. Pleural fluid cultures as well as catheter tip cultures grew S taphylococcus aureus. 2 days ago patient complaining of pain and tenderness around left Pleurx catheter; his pleural fluid cultures showed significantly elevated white count 119 K. Exudative in nature with significantly elevated LDH 7748. Today scheduled for removal of left renal drain. Procedure: Mr. Adamson was taken to the procedure room suite and carefully placed in the left lateral position on the bed with support.? He received IV conscious sedation fentanyl 25 mcg after appropriate timeout of been completed. The Pleurx catheter insertion site Infected.? The entire posterior left chest wall was sterilely prepped and draped.? The area surrounding the Pleurx catheter insertion site was infiltrated with 15 mL 1% lidocaine was infiltrated.? Utilizing blunt dissection with a hemostat adhesions around the Velcro cuff were removed and the catheter was removed with inline traction without difficulty and was intact.? I have placed 1 sutures at the exit wound. Sterile dressing was applied on this exit point.? Patient tolerated the procedure well and he was discharged home. We are sending catheter tip cultures, pleural fluid analysis, pleural fluid cultures, pleural fluid and flow cytometry
[2024-04-29 12:15] LABS: Lymphoma Profile (BBPL) See Report
== END 2024-04-27 08:30 | disposition home or self-care (01) ==
PROVIDERS: PCP Family Medicine Adult Medicine; Visit Provider Internal Medicine Pulmonary Disease
PROC: (CPT 32552; principal; 2024-04-27 07:00)
DX: T85.79XA Infection and inflammatory reaction due to other internal prosthetic devices, implants and grafts, initial encounter (principal); J90 Pleural effusion, not elsewhere classified; J44.9 Chronic obstructive pulmonary disease, unspecified; I50.31 Acute diastolic (congestive) heart failure; M05.9 Rheumatoid arthritis with rheumatoid factor, unspecified; Z87.891 Personal history of nicotine dependence
CPT/HCPCS: 32552; 87070; 87075; 87077; 87186; 87205; 88112; 88184; 88185; 96374; 99152; J3010

== ENCOUNTER → 2024-04-28 10:25 | Day surgery (SDC) | payer OTHER, SELFPAY ==
--- NOTE | 2024-04-28 10:11 | XR_ITS ---
WS: [id number] PORTABLE CHEST HISTORY: Post PICC insertion COMPARISON: 04/15/2024 Right-sided PICC line in good position and terminates at the caval atrial junction. Hazy attenuation over both lungs is probably due to the small bilateral pleural effusions. Chest tube s have been removed since the prior studies. No pneumothorax. LEFT upper lobe nodularity. Cardiac size: Normal. Mediastinum/Aorta: Poorly visualized due to the pleural effusions. No osseous abnormality seen. XR/XR chest 1V portable [id number] IMPRESSION: Satisfactory placement of right-sided PICC line.
[2024-04-28 10:29] VITALS: BP 122/77; PULSE 120; RESP 18; TEMP 36.9; O2SAT 94
[2024-04-28] MEDS: cefTRIAXone 2,000 MG in sodium chloride 0.9% (plus) 50 ML 100 MG IV (11:10)
--- NOTE | 2024-04-28 11:28 | PICC.NOTE ---
Single lumen PICC placed to right basilic vein. Referred to vascular access nurse for PICC placement due to need for IV antibiotics due to infection of pleural drain. Risks and benefits discussed and informed consent obtained from patient. Right arm assessed with right basilic_vein measuring 6.8 mm, straight, and apparent best choice for placement. Using sterile technique and MST, right basilic vein accessed x 1 stick. Mid-arm circumference measured 10 cm from right AC 30 cm. Trimmed cath 49 cm with 0 cm external length noted. CXR shows tip in distal SVC, cavoatrial junction, in good position for use per radiologist. Line secured with stat-lock. Insertion site covered with Biopatch and TSM. Report given to Dr. Deras's nurse, Jana.
[2024-04-28 11:34] LABS: Basophils % 0.3 %; Eosinophils # 0.2 10^3/uL (0.0-0.8); Eosinophils % 1.9 %; Hematocrit 29.5 % (37-53); Lymphocytes # 2.1 10^3/uL (0.8-4.8); Lymphocytes % 16.6 %; Mean Corpuscular HGB Conc 30.8 g/dL (30-55); Mean Corpuscular Hemoglobin 28.1 pg (27-33); Mean Platelet Volume 8.8 fL (7.4-10.4); Monocytes # 1.2 10^3/uL (0.2-0.9); Monocytes % 9.3 %; Neutrophils # 8.87 10^3/uL (1.8-7.7); Neutrophils % 71.4 %; Nucleated Red Blood Cells % 0 %; Platelet Count 318 10^3/cmm (157-399); Red Blood Count 3.24 10^6/uL (3.85-5.65); White Blood Count 12.42 10^3/uL (3.29-11.43)
[2024-04-28 11:59] LABS: Alanine Aminotransferase 8 U/L (0-41); Albumin Level 2.7 g/dL (3.5-5.2); Alkaline Phosphatase 70 U/L (40-130); Aspartate Amino Transferase 8 U/L (0-40); Creatinine Clr Calc Pharmacy 139.2389; Glomerular Filtration Rate 100.4 mL/min (90-130); Total Bilirubin 0.3 mg/dL (0.15-1.2); Total Protein 7.7 g/dL (6.6-8.7)
== END ==
PROVIDERS: PCP Family Medicine Adult Medicine; Visit Provider Student in an Organized Health Care Education/Training Program
DX: T85.79XA Infection and inflammatory reaction due to other internal prosthetic devices, implants and grafts, initial encounter (principal); Y82.9 Unspecified medical devices associated with adverse incidents
CPT/HCPCS: 36573; 36592; 71045; 80076; 82565; 85025; 96365; J0696

== ENCOUNTER 2024-05-12 10:23 | Outpatient (CLI) | payer OTHER, SELFPAY ==
[2024-05-12 11:14] LABS: Erythrocyte Sedimentation Rate 90 mm/hr (0-10)
[2024-05-12 11:31] LABS: C Reactive Protein 81.2 mg/L (0.0-4.9); Ferritin 467 ng/mL (30-400)
[2024-05-13 15:45] LABS: Anti-Nuclear Antibody Screen NEGATIVE (NEGATIVE)
== END 2024-05-12 10:24 | disposition home or self-care (01) ==
LOC: LAB 10:28
PROVIDERS: Absent Provider Student in an Organized Health Care Education/Training Program; PCP Family Medicine Adult Medicine; Visit Provider Dermatology
DX: M06.1 Adult-onset Still's disease (principal); D72.829 Elevated white blood cell count, unspecified; M06.4 Inflammatory polyarthropathy
CPT/HCPCS: 36415; 82728; 85651; 86038; 86140; 86431

== ENCOUNTER 2024-05-15 08:48 | Oncology outpatient (recurring) (ONCR) | payer OTHER, SELFPAY ==
[2024-04-29 10:19] VITALS: BP 116/76; PULSE 83; RESP 17; TEMP 36.9; O2SAT 98
[2024-04-29] MEDS: cefTRIAXone 2,000 MG in sodium chloride 0.9% (plus) 50 ML 100 MG IV (10:27)
[2024-04-29 11:02] VITALS: BP 115/74; PULSE 112; RESP 18; TEMP 37.3; O2SAT 90
[2024-04-30] MEDS: cefTRIAXone 2,000 MG in sodium chloride 0.9% (plus) 50 ML 100 MG IV (09:15)
[2024-04-30 09:17] VITALS: BP 132/81; PULSE 123; RESP 17; TEMP 36.5; O2SAT 95
[2024-05-01] MEDS: cefTRIAXone 2,000 MG in sodium chloride 0.9% (plus) 50 ML 100 MG IV (08:50)
[2024-05-01 08:58] VITALS: BP 141/85; PULSE 125; RESP 20; TEMP 36.2; O2SAT 94
[2024-05-02 10:13] VITALS: BP 114/79; PULSE 112; RESP 19; TEMP 37.1; O2SAT 95
[2024-05-02] MEDS: cefTRIAXone 2,000 mg SDV 2000 MG IV ×2 (10:28→10:33)
[2024-05-02 10:41] VITALS: BP 129/75; PULSE 108; RESP 19; TEMP 36.9; O2SAT 95
[2024-05-02 10:55] LABS: Basophils # 0.1 10^3/uL (0.0-0.1); Basophils % 0.6 %; Eosinophils # 0.4 10^3/uL (0.0-0.8); Hematocrit 28.2 % (37-53); Lymphocytes # 2.1 10^3/uL (0.8-4.8); Lymphocytes % 16.3 %; Mean Corpuscular HGB Conc 30.5 g/dL (30-55); Mean Corpuscular Hemoglobin 28.1 pg (27-33); Mean Corpuscular Volume 92.2 fl (82-101); Mean Platelet Volume 9.2 fL (7.4-10.4); Monocytes # 1.1 10^3/uL (0.2-0.9); Monocytes % 8.8 %; Neutrophils # 9.07 10^3/uL (1.8-7.7); Neutrophils % 70.6 %; Nucleated Red Blood Cells % 0 %; Platelet Count 338 10^3/cmm (157-399); Red Blood Count 3.06 10^6/uL (3.85-5.65); Red Cell Distribution Width 16.5 % (12.1-15.1); White Blood Count 12.84 10^3/uL (3.29-11.43)
[2024-05-02 11:12] LABS: Blood Urea Nitrogen 8 mg/dL (6-20); Carbon Dioxide 24 mmol/L (22-29); Chloride 101 mmol/L (98-107); Sodium 134 mmol/L (136-145)
[2024-05-02 11:13] LABS: Alanine Aminotransferase 10 U/L (0-41); Albumin Level 2.7 g/dL (3.5-5.2); Alkaline Phosphatase 71 U/L (40-130); Calcium 8.2 mg/dL (8.5-10.5); Globulin 5.1 g/dL (1.3-4.6); Glomerular Filtration Rate 139.9 mL/min (90-130); Glucose 119 mg/dL (65-115); Osmolality Calculated 277 mOsm/kg (285-295); Total Bilirubin 0.3 mg/dL (0.15-1.2); Total Protein 7.8 g/dL (6.6-8.7)
[2024-05-02 11:17] LABS: Anion Gap 13.1 (5-19); Aspartate Amino Transferase 17 U/L (0-40); Potassium 4.1 mmol/L (3.5-5.1)
[2024-05-03 09:55] VITALS: BP 101/70; PULSE 108; RESP 18; TEMP 36.5; O2SAT 98
[2024-05-03] MEDS: cefTRIAXone 2,000 mg SDV 2000 MG IV (10:14)
[2024-05-03 10:32] VITALS: BP 103/70; PULSE 101; RESP 16; TEMP 36.6; O2SAT 96
[2024-05-03 10:51] LABS: Basophils # 0.1 10^3/uL (0.0-0.1); Basophils % 0.4 %; Eosinophils # 0.2 10^3/uL (0.0-0.8); Eosinophils % 1.3 %; Hematocrit 31.1 % (37-53); Lymphocytes % 21.9 %; Mean Corpuscular HGB Conc 30.2 g/dL (30-55); Mean Corpuscular Hemoglobin 27.5 pg (27-33); Mean Corpuscular Volume 90.9 fl (82-101); Mean Platelet Volume 9.2 fL (7.4-10.4); Monocytes # 0.9 10^3/uL (0.2-0.9); Monocytes % 6.5 %; Neutrophils # 9.41 10^3/uL (1.8-7.7); Neutrophils % 69.3 %; Nucleated Red Blood Cells % 0 %; Platelet Count 452 10^3/cmm (157-399); Red Blood Count 3.42 10^6/uL (3.85-5.65); Red Cell Distribution Width 16.2 % (12.1-15.1); White Blood Count 13.59 10^3/uL (3.29-11.43)
[2024-05-04 10:10] VITALS: BP 120/75; PULSE 103; RESP 16; TEMP 36.6; O2SAT 97
[2024-05-04] MEDS: cefTRIAXone 2,000 mg SDV 2000 MG IV (10:13)
[2024-05-04 10:23] VITALS: BP 113/79; PULSE 97; RESP 18; O2SAT 98
[2024-05-05 09:59] VITALS: BP 122/83; PULSE 98; RESP 16; TEMP 36.5; O2SAT 95
[2024-05-05 10:05] VITALS: BP 122/85; PULSE 98; RESP 16; O2SAT 95
[2024-05-05] MEDS: cefTRIAXone 2,000 mg SDV 2000 MG IV (10:09)
[2024-05-05 12:05] LABS: Quantiferon Mitogen 8.03 IU/mL; Quantiferon Nil 0.01 IU/mL; Quantiferon TB Gold NEGATIVE (NEGATIVE)
[2024-05-06 10:01] VITALS: BP 123/76; PULSE 109; RESP 16; TEMP 36.5; O2SAT 97
[2024-05-06] MEDS: cefTRIAXone 2,000 mg SDV 2000 MG IV (10:05)
[2024-05-06 20:55] LABS: Fungitell 1-3-B Glucan Assay <31 pg/ml; Interpretation Negative (Negative)
[2024-05-07 08:51] VITALS: BP 116/95; PULSE 99; RESP 18; TEMP 37; O2SAT 97
[2024-05-07] MEDS: cefTRIAXone 2,000 mg SDV 2000 MG IV (08:51)
[2024-05-08] MEDS: cefTRIAXone 2,000 mg SDV 2000 MG IV ×2 (09:04→09:05)
[2024-05-08] MEDS: sodium chloride 0.9% (plus) 50 ML 100 ML IV (09:05)
[2024-05-08 10:04] VITALS: BP 117/73; PULSE 92; RESP 16; TEMP 36.9; O2SAT 98
[2024-05-09 09:55] VITALS: BP 128/74; PULSE 110; RESP 16; TEMP 36.5; O2SAT 96
[2024-05-09] MEDS: cefTRIAXone 2,000 mg SDV 2000 MG IV (10:02)
[2024-05-09 20:05] LABS: Coccidioides IgG Antibody NEGATIVE; Coccidioides IgM Antibody NEGATIVE; Histoplasma capsulatum H Ab NEGATIVE; Histoplasma capsulatum M Ab NEGATIVE
[2024-05-10 09:58] VITALS: BP 108/73; PULSE 105; RESP 16; TEMP 36.7; O2SAT 95
[2024-05-10] MEDS: cefTRIAXone 2,000 mg SDV 2000 MG IV (10:00)
--- NOTE | 2024-05-10 13:00 | CTR_ITS ---
PROCEDURE INFORMATION: Exam: CT Chest With Contrast; Diagnostic Exam date and time: 05/10/2024 1:09 PM Age: 53 years old Clinical indication: Patient HX: Empyema, pleurex associated empyema, S/P removal of tubes, currentl; Additional info: Empyema, pleurex associated empyema, S/P removal of tubes, currently TECHNIQUE: Imaging protocol: Diagnostic computed tomography of the chest with contrast. Contrast material: OMNIPAQUE 350; Contrast volume: 100 ml; Contrast route: INTRAVENOUS (IV); COMPARISON: CT chest w con* [id number] 03/11/2024 2:12 PM RADIATION DOSE METRICS: Total DLP (mGy-cm): 559.46 FINDINGS: Thyroid: Grossly unremarkable. Lungs: There are complex pleural effusions bilaterally containing air with thickening of the costal and parietal pleura suggestive of empyemas, age moderate in size. Tracts are noted in the chest wall soft tissues related to prior catheters that has since been removed. No focal consolidation. Heart: No cardiomegaly. No pericardial effusion. Mediastinal space: Trachea and central airways are grossly patent. No evidence of mediastinal mass or hematoma. Right-sided PICC line in place with tip terminating in the distal SVC. Lymph nodes: No evidence of mediastinal or hilar adenopathy. Vasculature: No aneurysmal dilatation of the thoracic aorta. No evidence of dissection. Though this study is not tailored to evaluate for pulmonary thromboembolism, there is no evidence of PE within limitations of respiratory motion. Bones/joints: No evidence of acute fracture or aggressive osseous lesion. Soft tissues: No fluid collection or hematoma in the superficial soft tissues. Other findings: No evidence of acute abnormality in the upper abdomen. CT/CT chest w con* [id number] IMPRESSION: 1. Bilateral empyemas.
[2024-05-10] MEDS: iohexol 350 mg/mL 500 mL Btl (per mL) IV (13:18)
[2024-05-10 13:35] LABS: Blastomyces AB Immunodiffusion Negative (Negative); Blastomyces Dermatitidis AB <1:8 titer (<1:8)
[2024-05-11 10:24] VITALS: BP 116/77; PULSE 106; RESP 17; TEMP 37.2; O2SAT 94
--- NOTE | 2024-05-11 10:54 | XR_ITS ---
WS: [id number] Exam: XR chest 1V [id number] Date/Time of Exam: 05/11/2024 10:54 AM Reason For Exam: Confirm placement of existing PICC Comparison 04/28/2024. Right-sided PICC line in place appearing to end in the region of the cavoatrial junction. There are i ncreasing bilateral pleural effusions noted. There are new bilateral fluid levels in the mid lung zon es that might indicate fluid within pneumatoceles or large emphysematous blebs. Lung abscess might al so be a consideration. There is compression of the lateral LEFT lung secondary to increasing pleural effusion. No pneumothorax is seen. There is atelectasis in the LEFT upper lobe. Heart size is probabl y normal. The mediastinum is normal in contour. Old LEFT clavicle fracture otherwise unremarkable bon y structures. Recommendations: Further evaluation with chest CT could be helpful for further work-up. XR/XR chest 1V [id number] IMPRESSION: 1. Right-sided PICC line probably ending in the region of the cavoatrial juncti on. 2. Increasing bilateral pleural effusions. There are new fluid levels in the RI GHT and LEFT midlung zones that might represent fluid within pneumatoceles or e mphysematous blebs. Lung abscess might have similar appearance. This represents a significant change since the last exam.
--- NOTE | 2024-05-11 11:29 | USCV_ITS ---
Deonte Adamson Age: 53 Gender: M : 1970 Exam Date: 05/11/2024 11:18 Ordering Phys: Myra Deras MD Technologist: CT Exam Location: [facility] [place] Indication: picc line problems no return PROCEDURES: Venous duplex imaging was performed in only the right upper extremity. The following venous structures were evaluated: internal jugular vein, subclavian vein, axillary vein, and brachial veins. FINDINGS: no dvt noted patent picc line CONCLUSIONS No evidence of thrombus of the right upper extremity veins. PICC line appears patent Landry Kirk MD (Electronically Signed) Final Date: 11 May 2024 13:47 S
[2024-05-11 12:23] VITALS: BP 135/87; PULSE 116; RESP 18; TEMP 36.2; O2SAT 96
[2024-05-11] MEDS: alteplase 1 mg/mL SDV 2 mL 2 MG INTRACATH (12:31)
[2024-05-11] MEDS: cefTRIAXone 2,000 mg SDV 2000 MG IV (13:47)
--- NOTE | 2024-05-11 13:57 | PICC.NOTE ---
Referred to vascular access nurse due to PICC not having blood return. CXR ordered with tip noted to be in the cavoatrial junction. Venous US ordered and completed as well. No evidence of DVT or infection noted. Dr. Deras updated. Cathflo ordered. Patency of PICC re-established after 1 hour dwell time. Good blood return now noted. Wasted 4 mL and then flushed with 20 mL NS without difficulty. Rocephin 2 gm IVP given as ordered. Report called to CTC nurseLucia.
[2024-05-11 18:15] LABS: Histoplasma Galactomannan Ag <0.2 ng/mL
[2024-05-12 10:02] VITALS: BP 118/77; PULSE 104; RESP 18; O2SAT 94
[2024-05-12] MEDS: cefTRIAXone 2,000 mg SDV 2000 MG IV (10:05)
[2024-05-13 10:18] VITALS: BP 122/75; PULSE 100; RESP 17; TEMP 36.8; O2SAT 94
[2024-05-13 10:33] LABS: Basophils % 0.2 %; Eosinophils % 0.2 %; Hematocrit 33.6 % (37-53); Lymphocytes # 1.6 10^3/uL (0.8-4.8); Lymphocytes % 12.5 %; Mean Corpuscular HGB Conc 30.4 g/dL (30-55); Mean Corpuscular Volume 92.3 fl (82-101); Monocytes # 0.6 10^3/uL (0.2-0.9); Monocytes % 4.5 %; Neutrophils # 10.33 10^3/uL (1.8-7.7); Nucleated Red Blood Cells % 0 %; Platelet Count 428 10^3/cmm (157-399); Red Blood Count 3.64 10^6/uL (3.85-5.65); White Blood Count 12.58 10^3/uL (3.29-11.43)
[2024-05-13] MEDS: cefTRIAXone 2,000 mg SDV 2000 MG IV (10:36)
[2024-05-13 10:46] VITALS: BP 138/94; PULSE 97; RESP 18; O2SAT 97
[2024-05-13 10:48] LABS: Alanine Aminotransferase 9 U/L (0-41); Albumin Level 2.9 g/dL (3.5-5.2); Alkaline Phosphatase 82 U/L (40-130); Creatinine Clr Calc Pharmacy 139.3227; Globulin 4.9 g/dL (1.3-4.6); Glomerular Filtration Rate 100.4 mL/min (90-130); Total Bilirubin 0.2 mg/dL (0.15-1.2); Total Protein 7.8 g/dL (6.6-8.7)
[2024-05-13 11:19] LABS: Aspartate Amino Transferase 18 U/L (0-40)
[2024-05-14] MEDS: cefTRIAXone 2,000 MG in sodium chloride 0.9% (plus) 50 ML 100 MG IV (09:04)
[2024-05-14 09:13] VITALS: BP 134/78; PULSE 97; RESP 16; TEMP 36.8; O2SAT 96
[2024-05-15 08:55] VITALS: BP 106/71; PULSE 102; RESP 18; TEMP 37.1; O2SAT 94
[2024-05-15] MEDS: cefTRIAXone 2,000 MG in sodium chloride 0.9% (plus) 50 ML 100 MG IV (09:00)
--- NOTE | 2024-05-15 09:14 | SUR.PREOP ---
0910-medication was administered by iv push.
== END 2024-05-15 23:59 | disposition home or self-care (01) ==
LOC: ONCMED 08:49
PROVIDERS: PCP Family Medicine Adult Medicine; Visit Provider Student in an Organized Health Care Education/Training Program
DX: T85.79XA Infection and inflammatory reaction due to other internal prosthetic devices, implants and grafts, initial encounter (principal); Y83.8 Other surgical procedures as the cause of abnormal reaction of the patient, or of later complication, without mention of misadventure at the time of the procedure
CPT/HCPCS: 36415; 36593; 71045; 71260; 80053; 80076; 82565; 85025; 86480; 86612; 86635; 86698; 87040; 87385; 87449; 93971; 96365; 96374; J0696; J2997; Q9967

== ENCOUNTER 2024-05-16 10:21 | Day surgery (SDC) | payer OTHER, SELFPAY ==
[2024-05-16 10:35] VITALS: BP 105/88; PULSE 125; RESP 18; TEMP 36.9; O2SAT 95; BMI 28.5
[2024-05-16] MEDS: cefTRIAXone 2,000 mg SDV 2000 MG IV (10:37)
--- NOTE | 2024-05-16 11:12 | XR_ITS ---
WS: [id number] PORTABLE CHEST HISTORY: post thoracentesis, RIGHT COMPARISON: 05/11/2024 Status post RIGHT thoracentesis. No pneumothorax. There is still a small amount of fluid and pleural thickening. Small LEFT pleural effusion is identified. Cardiac size: Normal. Mediastinum/Aorta: No widening. RIGHT PICC line. No osseous abnormality seen. XR/XR chest 1V portable [id number] IMPRESSION: 1. Status post RIGHT thoracentesis. No pneumothorax. 2. Small bilateral pleural effusions are identified.
[2024-05-16 11:18] LABS: Mononuclear %, Pleural Fluid 20 %; Polynuclear Cells, Pleural % 80 %
--- NOTE | 2024-05-16 11:36 | US_ITS ---
WS: [id number] ULTRASOUND-GUIDED THORACENTESIS, RIGHT HISTORY: BILATERAL PLEURAL EFFUSIONS Procedure, risks, and complications were explained to the patient. With the patient in an upright pos ition, the skin over the RIGHT posterior thorax was cleansed with ChloraPrep and anesthetized with 1% buffered lidocaine. A 5 Polish Yueh needle is inserted into the pleural fluid without complication. Approximately 600 cc of thick opaque complex fluid of dark red-colored. Probably a combination of inf ection and a small amount of blood. After the thoracentesis there is still pleural thickening and nod ularity and complex material present. It would be difficult to perform a thoracentesis and removal of all of the fluid due to the complex content. Pleural fluid specimen collected for analysis. / thoracentesis [id number] IMPRESSION: 1. RIGHT thoracentesis yielding 600 cc of fluid. 2. Chest radiograph to follow to evaluate for pneumothorax. 3. Very complex opaque RIGHT pleural fluid aspirated. Highly suspicious for in fection and possible associated blood.
[2024-05-16 11:50] LABS: Cyto Order Verification No Order
[2024-05-16 11:51] LABS: Appearance, Pleural Fluid TURBID (CLEAR); Color, Pleural Fluid Other (Pale Yellow)
[2024-05-16 13:25] LABS: PATH Referal YES
== END 2024-05-16 11:28 | disposition home or self-care (01) ==
PROVIDERS: Radiology Diagnostic Radiology; PCP Family Medicine Adult Medicine; Visit Provider Student in an Organized Health Care Education/Training Program
PROC: (CPT 32554; principal; 2024-05-16 11:30)
DX: J90 Pleural effusion, not elsewhere classified (principal)
CPT/HCPCS: 32555; 71045; 80503; 87070; 87075; 87077; 87186; 87205; 88112; 88305; 89050; 96374; J0696

== ENCOUNTER 2024-05-23 10:27 | Day surgery (SDC) | payer OTHER, SELFPAY ==
--- NOTE | 2024-05-23 10:25 | US_ITS ---
WS: [id number] ULTRASOUND-GUIDED THORACENTESIS CLINICAL INFORMATION: Chronic empyema PROCEDURE: Informed consent: The risks, benefits, and alternatives of the procedure were discussed with the areli ent. Verbal and written consent was obtained. Timeout: A timeout was performed to confirm the correct patient, procedure, and site. Site: LEFT chest Preparation: A suitable skin site was identified. The patient was prepped and draped in usual sterile fashion. Lidocaine 1% was used for local anesthesia. Catheter: 4 Italian One-Step catheter. Fluid Volume: 350 ml Color: Bloody purulent fluid Complications: None. Patient disposition: Discharged from the department in stable condition. / thoracentesis [id number] IMPRESSION: 1. Uncomplicated ultrasound-guided LEFT thoracentesis. 2. No pneumothorax on the postthoracentesis radiograph
[2024-05-23 10:41] VITALS: BP 126/99; PULSE 120; RESP 18; TEMP 36.8; O2SAT 95
[2024-05-23] MEDS: cefTRIAXone 2,000 mg SDV 2000 MG IVP (10:48)
--- NOTE | 2024-05-23 11:12 | XR_ITS ---
WS: [id number] CHEST XRAY TECHNIQUE: Portable chest. CLINICAL INFORMATION: post thoracentesis COMPARISON: 05/16/2024 FINDINGS: Heart: Normal cardiac silhouette. RIGHT PICC line with tip in the mid SVC unchanged. Lungs: Improved LEFT pleural effusion status post thoracentesis. LEFT basilar atelectasis. RIGHT pleu ral effusion appears increased compared to previous. RIGHT basilar atelectasis. Bones: Normal visualized bony structures. XR/XR chest 1V portable [id number] IMPRESSION: 1. Status post LEFT thoracentesis with improved LEFT pleural effusion. No pneu mothorax. 2. Small to moderate RIGHT pleural effusion appears increased compared to prev ious.
[2024-05-24 10:59] LABS: Body Fluid Polynuclear #Cells 221.878; Body Fluid WBC 252682 /uL; Monocytes # Body Fluid 30.804
[2024-05-24 11:00] LABS: Apprearance, Body Fluid CLOUDY; Color, Body Fluid RED; Cyto Order Verification No Order; Fluid Laterality LEFT THORACENTESIS
== END 2024-05-23 11:53 | disposition home or self-care (01) ==
PROVIDERS: Radiology Neuroradiology; PCP Family Medicine Adult Medicine; Visit Provider Student in an Organized Health Care Education/Training Program
PROC: (CPT 32554; principal; 2024-05-23 11:00)
DX: J86.9 Pyothorax without fistula (principal); J90 Pleural effusion, not elsewhere classified
CPT/HCPCS: 32555; 71045; 80503; 87070; 87075; 87205; 89050; 96374; J0696

== ENCOUNTER 2024-06-02 09:00 | Oncology outpatient (recurring) (ONCR) | payer OTHER, SELFPAY ==
[2024-05-20 09:59] VITALS: BP 99/67; PULSE 102; RESP 18; TEMP 36.8; O2SAT 95
[2024-05-20] MEDS: cefTRIAXone 2,000 mg SDV 2000 MG IVP (10:16)
[2024-05-20 10:31] LABS: Basophils # 0.1 10^3/uL (0.0-0.1); Basophils % 0.7 %; Eosinophils # 0.4 10^3/uL (0.0-0.8); Eosinophils % 3.4 %; Hematocrit 33.5 % (37-53); Lymphocytes # 2.3 10^3/uL (0.8-4.8); Lymphocytes % 19.3 %; Mean Corpuscular HGB Conc 30.7 g/dL (30-55); Mean Corpuscular Hemoglobin 28.5 pg (27-33); Mean Corpuscular Volume 92.8 fl (82-101); Monocytes # 0.9 10^3/uL (0.2-0.9); Monocytes % 7.6 %; Neutrophils # 7.97 10^3/uL (1.8-7.7); Neutrophils % 68.5 %; Nucleated Red Blood Cells % 0 %; Platelet Count 330 10^3/cmm (157-399); Red Blood Count 3.61 10^6/uL (3.85-5.65); Red Cell Distribution Width 17.9 % (12.1-15.1); White Blood Count 11.64 10^3/uL (3.29-11.43)
[2024-05-20 11:01] LABS: Alanine Aminotransferase 8 U/L (0-41); Albumin Level 2.8 g/dL (3.5-5.2); Alkaline Phosphatase 76 U/L (40-130); Aspartate Amino Transferase 13 U/L (0-40); Globulin 4.6 g/dL (1.3-4.6); Glomerular Filtration Rate 100.4 mL/min (90-130); Total Bilirubin 0.2 mg/dL (0.15-1.2); Total Protein 7.4 g/dL (6.6-8.7)
[2024-05-21] MEDS: cefTRIAXone 2,000 mg SDV 2000 MG IVP (09:30)
[2024-05-21 10:02] VITALS: BP 135/79; PULSE 102; RESP 18; TEMP 36.6; O2SAT 98
[2024-05-22 09:31] VITALS: BP 125/76; PULSE 100; RESP 18; TEMP 36.6; O2SAT 98
[2024-05-22] MEDS: cefTRIAXone 2,000 mg SDV 2000 MG IVP (09:32)
[2024-05-24] MEDS: cefTRIAXone 2,000 mg SDV 2000 MG IVP (09:12)
[2024-05-24 09:24] VITALS: BP 100/66; PULSE 105; RESP 20; TEMP 36.5
[2024-05-25 09:16] VITALS: BP 118/73; PULSE 104; TEMP 36.9; O2SAT 97
[2024-05-25] MEDS: cefTRIAXone 2,000 mg SDV 2000 MG IVP (09:24)
[2024-05-25 09:35] VITALS: BP 126/66; PULSE 74; RESP 16; TEMP 36.9; O2SAT 95
[2024-05-26 08:52] VITALS: BP 110/75; PULSE 103; RESP 18; TEMP 36.6; O2SAT 97
[2024-05-26] MEDS: cefTRIAXone 2,000 mg SDV 2000 MG IVP (09:05)
[2024-05-27] MEDS: cefTRIAXone 2,000 mg SDV 2000 MG IVP (09:44)
[2024-05-27 10:06] VITALS: BP 115/80; PULSE 90; TEMP 36.6; O2SAT 94
[2024-05-28] MEDS: cefTRIAXone 2,000 mg SDV 2000 MG IVP (09:20)
[2024-05-28 09:45] VITALS: BP 116/71; PULSE 111; RESP 19; TEMP 37.5; O2SAT 95
[2024-05-29 09:19] VITALS: BP 118/76; PULSE 116; RESP 18; TEMP 36.7; O2SAT 95
[2024-05-29] MEDS: cefTRIAXone 2,000 mg SDV 2000 MG IVP (09:25)
[2024-05-30 09:13] VITALS: BP 127/69; PULSE 104; RESP 94; TEMP 37.7; O2SAT 94
[2024-05-30] MEDS: cefTRIAXone 2,000 mg SDV 2000 MG IVP (09:21)
[2024-05-31] MEDS: cefTRIAXone 2,000 mg SDV 2000 MG IVP (08:58)
[2024-05-31 09:20] VITALS: BP 120/74; PULSE 114; RESP 20; TEMP 36.9; O2SAT 94
== END 2024-06-15 23:59 | disposition home or self-care (01) ==
PROVIDERS: PCP Family Medicine Adult Medicine; Visit Provider Student in an Organized Health Care Education/Training Program
DX: Z53.9 Procedure and treatment not carried out, unspecified reason (principal)
CPT/HCPCS: 80076; 82565; 85025; 96365; 96374; J0696

== ENCOUNTER 2024-07-16 09:00 | Oncology outpatient (recurring) (ONCR) | payer OTHER, SELFPAY ==
[2024-06-21] MEDS: cefTRIAXone 2,000 mg SDV 2000 MG IVP (09:09)
[2024-06-21 09:28] VITALS: BP 123/76; PULSE 100; RESP 16; TEMP 37.2; O2SAT 92
[2024-06-22] MEDS: cefTRIAXone 2,000 mg SDV 2000 MG IVP (09:06)
[2024-06-22 09:23] VITALS: BP 111/71; PULSE 102; RESP 16; TEMP 36.5; O2SAT 95
[2024-06-23] MEDS: cefTRIAXone 2,000 mg SDV 2000 MG IVP (09:11)
[2024-06-23 09:25] VITALS: BP 108/70; PULSE 107; RESP 16; TEMP 36.9; O2SAT 93
[2024-06-24] MEDS: cefTRIAXone 2,000 mg SDV 2000 MG IVP (09:45)
[2024-06-24 10:03] VITALS: BP 116/68; PULSE 106; RESP 18; TEMP 36.5; O2SAT 95
[2024-06-25 09:37] VITALS: BP 99/63; PULSE 103; RESP 18; TEMP 36.6; O2SAT 91
[2024-06-25] MEDS: cefTRIAXone 2,000 mg SDV 2000 MG IVP (09:39)
[2024-06-26 04:00] VITALS: BP 109/71; PULSE 94; RESP 18; TEMP 36.5; O2SAT 96
[2024-06-26 09:15] VITALS: BP 136/70; PULSE 110; RESP 20; TEMP 37.2; O2SAT 94
[2024-06-26] MEDS: cefTRIAXone 2,000 mg SDV 2000 MG IVP (09:18)
[2024-06-27] MEDS: cefTRIAXone 2,000 mg SDV 2000 MG IVP (08:57)
[2024-06-28 09:02] VITALS: BP 98/62; PULSE 102; RESP 18; TEMP 37.2; O2SAT 99
[2024-06-28] MEDS: cefTRIAXone 2,000 mg SDV 2000 MG IVP (09:11)
[2024-06-28 09:29] VITALS: BP 97/70; PULSE 98; RESP 18; TEMP 37.2; O2SAT 99
[2024-06-28 09:44] LABS: Basophils # 0.1 10^3/uL (0.0-0.1); Basophils % 0.5 %; Eosinophils # 0.5 10^3/uL (0.0-0.8); Eosinophils % 3.7 %; Hematocrit 28.2 % (37-53); Mean Corpuscular HGB Conc 30.1 g/dL (30-55); Mean Corpuscular Hemoglobin 26.5 pg (27-33); Mean Corpuscular Volume 87.9 fl (82-101); Mean Platelet Volume 8.7 fL (7.4-10.4); Monocytes % 7.6 %; Neutrophils # 9.12 10^3/uL (1.8-7.7); Neutrophils % 71.4 %; Nucleated Red Blood Cells % 0 %; Platelet Count 660 10^3/cmm (157-399); Red Blood Count 3.21 10^6/uL (3.85-5.65); Red Cell Distribution Width 17.9 % (12.1-15.1); White Blood Count 12.77 10^3/uL (3.29-11.43)
[2024-06-28 09:57] LABS: Alanine Aminotransferase 7 U/L (0-41); Albumin Level 2.5 g/dL (3.5-5.2); Alkaline Phosphatase 87 U/L (40-130); Anion Gap 14.1 (5-19); Aspartate Amino Transferase 7 U/L (0-40); Blood Urea Nitrogen 9 mg/dL (6-20); Calcium 8.2 mg/dL (8.5-10.5); Carbon Dioxide 25 mmol/L (22-29); Chloride 98 mmol/L (98-107); Globulin 5.2 g/dL (1.3-4.6); Glomerular Filtration Rate 100.4 mL/min (90-130); Glucose 100 mg/dL (65-115); Osmolality Calculated 275 mOsm/kg (285-295); Potassium 4.1 mmol/L (3.5-5.1); Sodium 133 mmol/L (136-145); Total Bilirubin 0.2 mg/dL (0.15-1.2); Total Protein 7.7 g/dL (6.6-8.7)
[2024-06-29] MEDS: cefTRIAXone 2,000 mg SDV 2000 MG IVP (09:06)
[2024-06-29 09:27] VITALS: BP 115/71; PULSE 94; RESP 16; TEMP 36.6; O2SAT 97
[2024-06-30] MEDS: cefTRIAXone 2,000 mg SDV 2000 MG IVP (08:50)
[2024-06-30 09:09] VITALS: BP 94/61; PULSE 115; RESP 20; TEMP 36.5; O2SAT 94
[2024-07-01] MEDS: cefTRIAXone 2,000 mg SDV 2000 MG IVP (09:00)
[2024-07-01 09:17] VITALS: BP 145/71; PULSE 105; RESP 18; TEMP 37.2; O2SAT 95
[2024-07-02] MEDS: cefTRIAXone 2,000 mg SDV 2000 MG IVP (08:56)
[2024-07-02 09:07] VITALS: BP 104/64; PULSE 103; RESP 17; TEMP 37.2; O2SAT 95; BMI 28.0
[2024-07-03 09:00] VITALS: BP 108/72; PULSE 106; RESP 18; TEMP 37.2; O2SAT 96
[2024-07-03] MEDS: cefTRIAXone 2,000 mg SDV 2000 MG IVP (09:03)
[2024-07-04 09:03] VITALS: BP 104/62; PULSE 105; RESP 16; TEMP 37.4; O2SAT 94
[2024-07-04] MEDS: cefTRIAXone 2,000 mg SDV 2000 MG IVP (09:08)
[2024-07-05 08:59] VITALS: BP 108/71; PULSE 110; RESP 16; TEMP 36.8; O2SAT 96
[2024-07-05] MEDS: cefTRIAXone 2,000 mg SDV 2000 MG IVP (09:01)
[2024-07-05 09:23] LABS: Basophils # 0.1 10^3/uL (0.0-0.1); Basophils % 0.7 %; Eosinophils # 0.6 10^3/uL (0.0-0.8); Eosinophils % 5.7 %; Hematocrit 28.8 % (37-53); Lymphocytes # 2.2 10^3/uL (0.8-4.8); Lymphocytes % 23.2 %; Mean Corpuscular HGB Conc 29.5 g/dL (30-55); Mean Corpuscular Hemoglobin 25.8 pg (27-33); Mean Corpuscular Volume 87.5 fl (82-101); Mean Platelet Volume 8.7 fL (7.4-10.4); Monocytes # 0.7 10^3/uL (0.2-0.9); Monocytes % 6.7 %; Neutrophils # 6.13 10^3/uL (1.8-7.7); Neutrophils % 63.4 %; Nucleated Red Blood Cells % 0 %; Platelet Count 463 10^3/cmm (157-399); Red Blood Count 3.29 10^6/uL (3.85-5.65); Red Cell Distribution Width 17.5 % (12.1-15.1); White Blood Count 9.67 10^3/uL (3.29-11.43)
[2024-07-05 09:43] LABS: Alanine Aminotransferase 6 U/L (0-41); Albumin Level 2.7 g/dL (3.5-5.2); Alkaline Phosphatase 101 U/L (40-130); Anion Gap 18.4 (5-19); Aspartate Amino Transferase 18 U/L (0-40); Blood Urea Nitrogen 13 mg/dL (6-20); Calcium 7.9 mg/dL (8.5-10.5); Carbon Dioxide 23 mmol/L (22-29); Chloride 102 mmol/L (98-107); Creatinine Clr Calc Pharmacy 110.7484; Globulin 5.2 g/dL (1.3-4.6); Glomerular Filtration Rate 77.6 mL/min (90-130); Glucose 152 mg/dL (65-115); Osmolality Calculated 291 mOsm/kg (285-295); Potassium 4.4 mmol/L (3.5-5.1); Sodium 139 mmol/L (136-145); Total Bilirubin 0.2 mg/dL (0.15-1.2); Total Protein 7.9 g/dL (6.6-8.7)
[2024-07-06] MEDS: cefTRIAXone 2,000 mg SDV 2000 MG IVP (08:52)
[2024-07-06 09:03] VITALS: BP 119/77; PULSE 96; RESP 16; TEMP 36.9; O2SAT 95
[2024-07-07] MEDS: cefTRIAXone 2,000 mg SDV 2000 MG IVP (09:01)
[2024-07-07 09:11] VITALS: BP 104/72; PULSE 88; RESP 16; TEMP 36.9; O2SAT 94
[2024-07-08] MEDS: cefTRIAXone 2,000 mg SDV 2000 MG IVP (09:12)
[2024-07-08 09:23] VITALS: BP 121/68; PULSE 108; RESP 16; TEMP 37.4; O2SAT 95
[2024-07-09 09:00] VITALS: BP 129/80; PULSE 85; RESP 16; TEMP 36.6; O2SAT 97
[2024-07-09] MEDS: cefTRIAXone 2,000 mg SDV 2000 MG IVP (09:25)
--- NOTE | 2024-07-09 09:41 | PC.NURSE ---
PICC line flushed with 20ml of saline flush prior to iv medication infusion and 20ml after infusion. new cap applied. PT tolerated well.
[2024-07-10] MEDS: cefTRIAXone 2,000 mg SDV 2000 MG IVP (08:58)
[2024-07-10 09:10] VITALS: BP 133/85; PULSE 79; RESP 18; TEMP 36; O2SAT 96
[2024-07-11] MEDS: cefTRIAXone 2,000 mg SDV 2000 MG IVP (10:33)
[2024-07-11 10:54] VITALS: BP 113/72; PULSE 88; RESP 16; TEMP 36.8; O2SAT 97
[2024-07-12] MEDS: cefTRIAXone 2,000 mg SDV 2000 MG IVP (08:54)
[2024-07-12 09:10] VITALS: BP 137/88; PULSE 96; RESP 16; TEMP 36.4; O2SAT 97
[2024-07-12 09:21] LABS: Basophils # 0.1 10^3/uL (0.0-0.1); Basophils % 0.8 %; Eosinophils # 0.3 10^3/uL (0.0-0.8); Eosinophils % 3.6 %; Hematocrit 30.7 % (37-53); Lymphocytes % 24.2 %; Mean Corpuscular Hemoglobin 25.8 pg (27-33); Mean Platelet Volume 9.1 fL (7.4-10.4); Monocytes # 0.6 10^3/uL (0.2-0.9); Monocytes % 7.4 %; Neutrophils # 5.32 10^3/uL (1.8-7.7); Neutrophils % 63.8 %; Nucleated Red Blood Cells % 0 %; Platelet Count 429 10^3/cmm (157-399); Red Blood Count 3.57 10^6/uL (3.85-5.65); Red Cell Distribution Width 17.2 % (12.1-15.1); White Blood Count 8.35 10^3/uL (3.29-11.43)
[2024-07-12 10:06] LABS: Alanine Aminotransferase < 5 U/L (0-41); Albumin Level 2.8 g/dL (3.5-5.2); Alkaline Phosphatase 104 U/L (40-130); Anion Gap 14.7 (5-19); Aspartate Amino Transferase 8 U/L (0-40); Blood Urea Nitrogen 8 mg/dL (6-20); Calcium 8.3 mg/dL (8.5-10.5); Carbon Dioxide 25 mmol/L (22-29); Chloride 102 mmol/L (98-107); Creatinine Clr Calc Pharmacy 138.4355; Globulin 4.8 g/dL (1.3-4.6); Glomerular Filtration Rate 100.4 mL/min (90-130); Glucose 98 mg/dL (65-115); Osmolality Calculated 284 mOsm/kg (285-295); Potassium 3.7 mmol/L (3.5-5.1); Sodium 138 mmol/L (136-145); Total Bilirubin 0.2 mg/dL (0.15-1.2); Total Protein 7.6 g/dL (6.6-8.7)
[2024-07-13 08:48] VITALS: BP 112/73; PULSE 104; RESP 16; TEMP 36.3; O2SAT 98
[2024-07-13] MEDS: cefTRIAXone 2,000 mg SDV 2000 MG IVP (08:49)
[2024-07-13 09:00] VITALS: BP 112/74; PULSE 104; RESP 16; TEMP 36.3; O2SAT 97
[2024-07-14] MEDS: cefTRIAXone 2,000 mg SDV 2000 MG IVP (09:10)
[2024-07-14 09:19] VITALS: BP 127/80; PULSE 96; RESP 16; TEMP 36.7; O2SAT 96
[2024-07-15] MEDS: cefTRIAXone 2,000 mg SDV 2000 MG IVP (08:51)
[2024-07-15 09:04] VITALS: BP 112/78; PULSE 99; RESP 16; TEMP 37.1; O2SAT 97
[2024-07-16 08:36] VITALS: BP 132/78; PULSE 93; RESP 18; TEMP 36.7; O2SAT 98
[2024-07-16] MEDS: cefTRIAXone 2,000 mg SDV 2000 MG IVP (08:57)
== END 2024-07-16 23:00 | disposition home or self-care (01) ==
LOC: OPS 07-17 00:01 → ONCMED 07-19 13:07 → OPS 07-19 13:08
PROVIDERS: Internal Medicine Infectious Disease; PCP Family Medicine Adult Medicine; Visit Provider Student in an Organized Health Care Education/Training Program
DX: J90 Pleural effusion, not elsewhere classified (principal); Z53.9 Procedure and treatment not carried out, unspecified reason; Z79.2 Long term (current) use of antibiotics
CPT/HCPCS: 80053; 85025; 96365; 96374; J0696

== ENCOUNTER 2024-07-21 09:00 | Oncology outpatient (recurring) (ONCR) | payer OTHER, SELFPAY ==
[2024-07-17 09:13] VITALS: BP 129/77; PULSE 101; RESP 18; TEMP 37.2; O2SAT 98
[2024-07-17] MEDS: cefTRIAXone 2,000 mg SDV 2000 MG IVP (09:20)
[2024-07-18 08:40] VITALS: BP 109/69; PULSE 96; RESP 18; TEMP 36.5; O2SAT 97
[2024-07-18] MEDS: cefTRIAXone 2,000 mg SDV 2000 MG IVP (08:40)
[2024-07-19] MEDS: cefTRIAXone 2,000 mg SDV 2000 MG IVP (09:02)
[2024-07-19] MEDS: alteplase 1 mg/mL SDV 2 mL 2 MG INTRACATH (09:30)
[2024-07-19 09:40] LABS: Basophils # 0.1 10^3/uL (0.0-0.1); Basophils % 0.8 %; Eosinophils # 0.7 10^3/uL (0.0-0.8); Eosinophils % 7.4 %; Hematocrit 33.1 % (37-53); Lymphocytes % 22.2 %; Mean Corpuscular HGB Conc 30.2 g/dL (30-55); Mean Corpuscular Hemoglobin 26.1 pg (27-33); Mean Corpuscular Volume 86.4 fl (82-101); Mean Platelet Volume 9.4 fL (7.4-10.4); Monocytes # 0.8 10^3/uL (0.2-0.9); Monocytes % 9.1 %; Neutrophils # 5.38 10^3/uL (1.8-7.7); Neutrophils % 60.2 %; Nucleated Red Blood Cells % 0 %; Platelet Count 404 10^3/cmm (157-399); Red Blood Count 3.83 10^6/uL (3.85-5.65); Red Cell Distribution Width 17.7 % (12.1-15.1); White Blood Count 8.93 10^3/uL (3.29-11.43)
[2024-07-19 10:05] LABS: Alanine Aminotransferase 6 U/L (0-41); Albumin Level 3.1 g/dL (3.5-5.2); Alkaline Phosphatase 130 U/L (40-130); Anion Gap 13.9 (5-19); Aspartate Amino Transferase 9 U/L (0-40); Blood Urea Nitrogen 12 mg/dL (6-20); Calcium 8.2 mg/dL (8.5-10.5); Carbon Dioxide 25 mmol/L (22-29); Chloride 103 mmol/L (98-107); Globulin 4.7 g/dL (1.3-4.6); Glomerular Filtration Rate 87.6 mL/min (90-130); Glucose 131 mg/dL (65-115); Osmolality Calculated 288 mOsm/kg (285-295); Potassium 3.9 mmol/L (3.5-5.1); Sodium 138 mmol/L (136-145); Total Bilirubin 0.2 mg/dL (0.15-1.2); Total Protein 7.8 g/dL (6.6-8.7)
[2024-07-19 11:16] VITALS: BP 125/74; PULSE 107; RESP 16; TEMP 36.4; O2SAT 96
[2024-07-20] MEDS: cefTRIAXone 2,000 mg SDV 2000 MG IVP (09:03)
[2024-07-20 09:13] VITALS: BP 107/72; PULSE 94; RESP 16; TEMP 36.4; O2SAT 95
[2024-07-21 09:31] VITALS: BP 131/75; PULSE 91; RESP 20; TEMP 37.3; O2SAT 96
[2024-07-21] MEDS: cefTRIAXone 2,000 mg SDV 2000 MG IVP (09:37)
== END 2024-08-15 23:59 | disposition home or self-care (01) ==
PROVIDERS: PCP Family Medicine Adult Medicine; Visit Provider Internal Medicine Infectious Disease
DX: J90 Pleural effusion, not elsewhere classified (principal); Z79.899 Other long term (current) drug therapy; Z45.2 Encounter for adjustment and management of vascular access device; Z53.9 Procedure and treatment not carried out, unspecified reason
CPT/HCPCS: 80053; 85025; 96374; J0696; J2997

== ENCOUNTER → 2024-08-24 11:39 | Outpatient (BNVA) | payer OTHER, SELFPAY | PROVIDERS: PCP Family Medicine Adult Medicine; Visit Provider Student in an Organized Health Care Education/Training Program | DX: J90 Pleural effusion, not elsewhere classified (principal); J94.9 Pleural condition, unspecified | CPT/HCPCS: 71046 ==

== ENCOUNTER → 2024-08-31 10:02 | Outpatient (BNVA) | payer OTHER, SELFPAY | PROVIDERS: PCP Family Medicine Adult Medicine; Visit Provider Family Medicine | DX: Z01.818 Encounter for other preprocedural examination (principal); R00.0 Tachycardia, unspecified; R94.31 Abnormal electrocardiogram [ECG] [EKG] | CPT/HCPCS: 80053; 81003; 85025; 93005 ==

== ENCOUNTER 2024-09-26 05:52 | Day surgery (SDC) | payer OTHER, SELFPAY ==
[2024-09-26] VITALS (11 sets, daily range): BP systolic 101–153; BP diastolic 60–96; PULSE 81–91; RESP 14–18; TEMP 36.2–36.8; O2SAT 93–97; BMI 29.8
--- NOTE | 2024-09-26 05:57 | W.PM.OPSFHP ---
Same Day Surgery H&P Indication for Procedure/HPI DATE OF PROCEDURE: September 26, 2024 CHIEF COMPLAINT/INDICATIONFOR SURGICAL PROCEDURE: bilateral inguinal hernia PREOP DIAGNOSIS: bilateral inguinal hernia PLANNED PROCEDURE: Operation Date: 09/26/24 07:00 Proposed Procedures p Laparoscopic Inguinal Hernia Repair/ possible open [id number], K40.90(Bilateral) - Riky Trejo MD Medications/Allergies* Allergies/Adverse Reactions Allergy/AdvReac Type Severity Reaction Status Date / Time leflunomide AdvReac Mild rash hands Verified 08/31/24 10:20 sulfasalazine AdvReac Mild rash Verified 08/31/24 10:20 Pertinent History/Comorbid Conditions* Medical History (Updated 06/28/24 @ 12:59 by José Manuel Arreola MD) Asthma Pleural effusion Hx, used to see Dr. Tariq Shortness of breath Seronegative rheumatoid arthritis of both hands History of colon polyps Rheumatoid arthritis with rheumatoid factor Surgical History (Updated 06/28/24 @ 12:59 by José Manuel Arreola MD) Status post colonoscopy with polypectomy (06/19/20) 06/19/2020 Dr. Sales History of elbow surgery History of appendectomy Family History (Updated 03/19/20 @ 09:04 by Mireille Ferrera LPN) Diabetes Denies family history of Rheumatoid arthritis Lupus CAD (coronary artery disease) Cancer Social History Smoking and tobacco/nicotine status: former use of tobacco/nicotine Quit status (tobacco/nicotine): has quit using Year quit tobacco: 2019 - 1PPD x 20 Years Second hand smoke exposure: No Alcohol intake: former Substance/Drug Use: never Lives independently: Yes Household members: none Marital status: Single Current occupational status: employed Current occupation: [employer] Current occupational exposures/hazards: No Do you think of yourself as: Straight/Heterosexual Current gender identity: Male Pertinent Exam Findings alert, oriented x 3, clear to auscultation bilaterally, regular rate & rhythm and operative site marked Recommendations Surgery/Procedure today Coding Level of Care Code Acute Code for Chg Fwd
--- NOTE | 2024-09-26 06:04 | P.ANESASSM_ITS ---
Pre-Anesthetic Assessment Height/Weight: Height 6 ft 4 in Preop Diagnosis: bilateral inguinal hernia Operation Date: 09/26/24 07:00 Proposed Procedures p Laparoscopic Inguinal Hernia Repair/ possible open [id number], K40.90(Bilateral) - Riky Trejo MD Was Beta Mary Ann taken within 24 hours: N/A Was Clonidine taken within 24 hours: N/A Social Tobacco and No alcohol Exam alert, oriented x 3, clear to auscultation bilaterally and regular rate & rhythm Airway Submandibular: within normal limits Cervical ROM: within normal limits Mallampati: Class III Dentition: full Anesthetic Plan ASA status: 3 Anesthesia: General Other: No prior issues with anesthesia Patient states that he has been n.p.o. since yesterday however during her airway exam he had a tobacco pack in. Patient will need to wait at least 2 hours prior to anesthesia History of GERD on Protonix Rheumatoid arthritis with numerous lung issues requiring bilateral pleural drains in December of this year as well as pleurodesis earlier in the year as well. Patient has been off all RA meds since that time and states he is doing well Recent labs reviewed and acceptable for procedure Prior EKG showing sinus tachycardia Plan for GETA with possible postop nerve block Medications/Allergies Home Medications Medication Instructions Recorded Confirmed Last Taken Type potassium chloride 20 mEq 20 meq PO DAILY #90 tabs 01/07/21 09/22/24 09/20/24 Rx tablet,extended release folic acid 1 mg tablet 1 mg PO DAILY #90 tabs 05/27/22 09/22/24 05/22/24 Rx prednisone 20 mg tablet See Rx Instructions PO .COMPLEX 04/01/23 09/22/24 05/22/24 Rx PRN joint pain flare #30 tabs pantoprazole 40 mg tablet,delayed 40 mg PO DAILY #90 tabs 10/13/23 09/22/24 05/22/24 Rx release furosemide 40 mg tablet 40 mg PO DAILY PRN edema #30 tabs 04/21/24 09/22/24 05/25/24 Rx adalimumab 40 mg/0.8 mL 40 mg (0.8 mL) SUBCUT Q14D #2 ea 06/13/24 09/22/24 05/25/24 Rx subcutaneous pen kit (Humira Pen) Allergies Allergy/AdvReac Type Severity Reaction Status Date / Time leflunomide AdvReac Mild rash hands Verified 08/31/24 10:20 sulfasalazine AdvReac Mild rash Verified 08/31/24 10:20 PFSH Anesthesia Medical History Asthma Pleural effusion Hx, used to see Dr. Tariq Shortness of breath Seronegative rheumatoid arthritis of both hands History of colon polyps Rheumatoid arthritis with rheumatoid factor Surgical History Status post colonoscopy with polypectomy (06/19/20) 06/19/2020 Dr. Sales History of elbow surgery History of appendectomy Family History Other Diabetes Denies family history of Rheumatoid arthritis Lupus CAD (coronary artery disease) Cancer Social History Smoking and tobacco/nicotine status: former use of tobacco/nicotine Quit status (tobacco/nicotine): has quit using Year quit tobacco: 2019 - 1PPD x 20 Years Second hand smoke exposure: No Alcohol intake: former Substance/Drug Use: never Lives independently: Yes Household members: none Marital status: Single Current occupational status: employed Current occupation: [employer] Current occupational exposures/hazards: No Do you think of yourself as: Straight/Heterosexual Current gender identity: Male Data Anesthesia Cardiac Studies: Echocardiogram 01/24/21 Stress Echocardiogram 12/24/20
[2024-09-26] MEDS: sodium chloride 0.9% 1,000 ML 30 ML IV (06:22)
--- NOTE | 2024-09-26 07:16 | PC.NURSE ---
0610 Dr. Ivory into speak with pt. Pt stated to . he had a nicotine patch in mouth. Procedure delayed 2 hours per anesthesia.
[2024-09-26] MEDS: ceFAZolin 2,000 MG in sodium chloride 0.9% (plus) 50 ML 100 MG IV (10:09)
[2024-09-26] MEDS: BUPivacaine 0.25% INJ 30 mL INJECTION (10:29)
[2024-09-26] MEDS: lidocaine-epi 1% PF 1:200,000 30 mL SDV INJECTION (10:29)
--- NOTE | 2024-09-26 11:58 | PM.OP ---
Operative Report Date of procedure: September 26, 2024 Pre-op diagnosis: Bilateral inguinal hernia Post-op diagnosis: Bilateral inguinal hernia Post-op findings: There was a large indirect left inguinal hernia, on the right there was a small direct hernia containing fat only and there was a small indirect hernia. Procedure done: Laparoscopic repair of bilateral inguinal hernia Implants: Large left 3D max mesh. Medium right 3D max mesh Specimens removed/disposition: none Surgeon: Riky Trejo MD Retail Marketing Manager: [employer] [facility] Estimated blood loss: 10 Complications: none apparent Brief History: This is a 54-year-old male who is referred to my clinic with bilateral inguinal hernias. After discussion of all risk and benefits as documented in my preop note we decided to proceed with repair. Procedure: Patient was brought into the OR, he was placed in a supine position. General anesthesia was given. The abdomen was prepped and draped in the usual sterile fashion. Timeout was conducted. I then proceeded to make a 1.5 cm infraumbilical incision, the incision was deepened to the anterior rectus sheath, the left anterior rectus sheath was then opened with electrocautery, the rectus muscle was retracted in the lateral direction revealing the retrorectus space, I then carefully inserted the Spacemaker balloon into the retrorectus space and advanced up to the level of the pubic bone. Under iliac visualization the balloon was then insufflated, adequate insufflation and development of the properitoneal space was achieved. The Spacemaker balloon was removed and replaced with a 12 mm balloon trocar. Additional 5 mm balloon trocars were placed in the suprapubic and infraumbilical locations under direct visualization. I started my dissection with the left side that this was the most symptomatic. I proceeded to clear the properitoneal space until I was able to visualize the pubic bone and pubic symphysis, I was able to decide about 2 cm under the pubic bone to allow space for the mesh to lay. I then proceeded to open the lateral space of Borgess on the left, once the space was developed I then proceeded to dissect the cord structures from an indirect hernia sac that was identified, the hernia sac was completely dissected and was able to be reduced. A small lipoma of the cord was also noted and was reduced. A critical view of safety of the myopectineal orifice was achieved. A large left 3D max mesh was then inserted in the preperitoneal space and placed covering the direct indirect and femoral spaces. I then placed my attention to the right side, I proceeded to completely clear the pubic bone all the way to the right until I was able to visualize the femoral vein, and this process I was also able to reduce fat-containing direct inguinal hernia. I then developed the lateral space of Borgess, and finally I decided to dissect the cord structures, small indirect sac was noted and was completely dissected. A medium size right side 3D max mesh was then introduced into the preperitoneal space and place covering the direct indirect and femoral spaces. There was good overlap of the mesh with the previous placed mesh in the midline. No need for fixation was noted as the space was completely occupied by the mesh. I then proceeded to desufflate the properitoneal space, upon reinsufflation adequate mesh position was verified. I then desufflated the space under direct visualization. Trocars were removed. The anterior rectus sheath at the level of the umbilicus was closed with #0 Vicryl. I then proceeded to close all the wounds with #3-0 Vicryl for subcutaneous tissue and #4-0 Monocryl for the skin. Dermabond was then applied. At the end of the procedure all counts were correct, the patient tolerated well the procedure was transferred to the PACU in stable condition.
[2024-09-26] MEDS: oxyCODONE 5 mg IR Tab/Cap PO (12:44)
--- NOTE | 2024-09-26 13:05 | ANE.PACU2 ---
Inpatient post-anesthesia follow up: Airway intact: Yes Vital signs: Temperature 97.2 F Pulse Rate 83 Respiratory Rate 18 Blood Pressure 101/79 Pulse Oximetry 97 Oxygen Delivery Me thod Room Air Oxygen Flow Rate Fraction of Inspir ed Oxygen Hydration adequate: Yes Nausea and vomiting: No Pain level: 1 Mental status: Baseline
--- NOTE | 2024-09-26 13:09 | PC.NURSE ---
1300 pt states pain 04/25. requesting to go home.
== END 2024-09-26 13:05 | disposition home or self-care (01) ==
PROVIDERS: PCP Family Medicine Adult Medicine; Visit Provider Surgery
PROC: (CPT 49650; principal; 2024-09-26 07:00)
DX: K40.20 Bilateral inguinal hernia, without obstruction or gangrene, not specified as recurrent (principal); K21.9 Gastro-esophageal reflux disease without esophagitis; M06.9 Rheumatoid arthritis, unspecified; Z87.891 Personal history of nicotine dependence
CPT/HCPCS: 49650; 51702; C1781; J0690; J1100; J2405; J2704; J3010; J3490; J7030